=== PATIENT | male | born 1955 | race Caucasian/White ===

== ENCOUNTER 2023-10-07 14:30 | Outpatient (AMB) | payer MEDICARE, SELFPAY ==
[2023-10-07 14:29] VITALS: BMI 40.5
--- NOTE | 2023-10-07 14:29 | A.OFFVIS_ITS ---
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 This originally began as a workup for kidney stones dating back to 02/18/2023. Regional CT scan was performed at an outside institution. In terms of his aneurysm he is completely asymptomatic. He reports that he smokes about a half a pack per day and is a nondiabetic. He is able to climb a flight of stairs with no difficulty and no shortness of breath. He now presents for vascular evaluation [facility] Medical History (Updated 10/08/23 @ 12:28 by Louis Márquez MD) History of nephrolithotomy with removal of calculi Hypertension Hypercholesteremia Social History (Updated 10/07/23 @ 14:43 by Madeline Sinclair [place]) Patient Tobacco Use Status: Current everyday Tobacco user Cigarette Packs Per Day: 0.5 Years Smoked: 1 yr Review of Systems Const All systems reviewed & are unremarkable except as noted in HPI and below Reports no additional complaints ENT Reports Normal hearing present Card Denies chest pain, Denies chest pain at rest, Denies chest pain with activity and Denies pedal edema Resp Denies cough GI Denies abdominal pain Musc Denies abnormal gait, Denies muscle cramps and Denies radiating pain into limb Skin/Breast Denies skin ulcer and Denies wounds Neuro Reports Normal hearing present and Denies abnormal gait Psych Reports no additional complaints Physical Exam Vital Signs: BMI result Body Mass Index 40.5 Const General: cooperative, healthy appearing and comfortable Orientation/consciousness: oriented to person, oriented to place and oriented to time HEENT Head: Yes normal to inspection Neck Neck: Yes normal visual inspection Carotids: no bruits Chest Chest palpation & inspection: normal inspection of the chest Resp Effort & Inspection: normal respiratory effort and able to speak in complete sentences Auscultation: clear to auscultation bilaterally, no crackles, no rales, no rhonchi and no wheezes Cardio Rate: regular rate Rhythm: regular rhythm Heart sounds: S1 normal heart sound present and S2 normal heart sound present Bruits: no carotid bruits Peripheral pulses: Peripheral pulses 2+ throughout GI Inspection: Yes normal to inspection Skin Wounds: no wounds Hair: normal Neuro General: oriented to person, oriented to place and oriented to time Cranial nerves: Yes CN's II-XII intact bilaterally and Yes Normal hearing pre sent Cognition (Neuro): normal cognition Motor exam (neuro): 5/5 motor strength present throughout Extrem Other: venous exam: No significant superficial varicosities or spider telangiectasias, minimal edema General: No clubbing, No cyanosis and No edema Psych Appearance: grossly normal Mental Status: mental status grossly normal Speech and movement: Normal speech and movement present Results Reviewed Results Reviewed: CT scan dated 02/18/2023 demonstrates a 3.2 short-segment saccular infrarenal aortic aneurysm. Written report reviewed only Assessment & Plan Assessment & Plan (1) AAA (abdominal aortic aneurysm) without rupture: Code(s): I71.40 - Abdominal aortic aneurysm, without rupture, unspecified Qualifiers: Abdominal aorta location: infrarenal aorta Qualified Code(s): I71.43 - Infrarenal abdominal aortic aneurysm, without rupture Plan: In short patient has a 3.2 cm aneurysm. The concern is the report of the morphology of a saccular aneurysm. I have taken the liberty of ordering a repeat CT angiogram to better define this and it has been over 6 months since his last CT scan. We did discuss routine risk factor modification we also went over the pathophysiology of disease in I did provide him an information booklet about aortic aneurysms. He will follow up with us after testing. Thank you for allowing us to assist in his care. If there are any questions or concerns please do not hesitate to contact us Orders: Orders Creatinine Today I71.43 - Infrarenal abdominal aortic aneurysm, without rupture CT angio abdomen pelvis 3 Days I71.43 - Infrarenal abdominal aortic aneurysm, without rupture Blood Urea Nitrogen Today I71.43 - Infrarenal abdominal aortic aneurysm, without rupture Coding Level of Care Code New Pt Level 4 (16865) Diagnoses Infrarenal abdominal aortic aneurysm (AAA) without rupture I71.43 Abdominal aorta location: infrarenal aorta
== END 2023-10-07 15:18 | disposition home or self-care (01) ==
PROVIDERS: Visit Provider Surgery Vascular Surgery
DX: I71.43 Infrarenal abdominal aortic aneurysm, without rupture (principal)
CPT/HCPCS: 99204

== ENCOUNTER → 2023-10-07 14:30 | Outpatient (BNVA) | payer MEDICARE, SELFPAY | PROVIDERS: Visit Provider Surgery Vascular Surgery | DX: I71.43 Infrarenal abdominal aortic aneurysm, without rupture (principal) | CPT/HCPCS: 99202 ==

== ENCOUNTER 2023-10-10 15:59 | Outpatient (REF) | payer MEDICARE, SELFPAY ==
--- NOTE | ~2023-10-10 | CT_ITS ---
EXAMINATION: CT ANGIOGRAM ABDOMEN AND PELVIS CLINICAL INFORMATION: Infrarenal abdominal aortic aneurysm without rupture. COMPARISON: None available. TECHNIQUE: Multiple axial images were obtained through the abdomen and pelvis following the administration of 100 mL of Omnipaque 350 intravenous contrast. Images were reviewed on a dedicated 3-D workstation. This CT examination was performed using dose optimization techniques as appropriate, variously including the following: *Automated exposure control *Adjustment of mA and/or kV according to patient size (this includes techniques or standardized protocols for targeted exams where dose is matched to indication/reason for exam; i.e. extremities or head) *Use of iterative reconstruction technique DLP: 807 mGy-cm FINDINGS: Lung bases: There is bibasilar scarring or atelectasis. The heart size is normal. Liver, ducts and gallbladder: The liver is normal size, contour and density. There are 2 hypodense lesion in left and right hepatic lobe respectively. The larger lesion right upper lobe measures 2.7 cm and -3 Hounsfield units suggestive of cysts. No intrahepatic ductal dilatation seen. The gallbladder is dilated without radiopaque gallstones or wall thickening. CBD is normal caliber. Spleen: Pancreas: Unremarkable. Adrenal glands: There is normal symmetry of bilateral adrenal glands which appear normal size and density. Kidneys and ureters: Both kidney nephrograms are slightly lobulated with bilateral exophytic renal cysts. The largest cyst lower pole left kidney appears lobulated measuring 5.9 x 2.3 cm and minus Hounsfield units suggestive of cysts simple cyst. No further workup needed. There are no radiopaque calculi are hydronephrosis. GI tract: There is scattered stool and gas seen in colon without distention. The small bowel loops are normal caliber. Appendix is not visualized. No inflammatory process, free air or free fluid seen. Abdominal wall: Unremarkable. Lymphovascular structures: Abdominal aorta is normal caliber with a focal distal posterior outpouching suggestive of aneurysm measuring 3.0 x 2.0 cm. There are dual bilateral renal arteries. No abnormal size retroperitoneal or mesenteric lymph nodes seen. Pelvis: Prostate gland is mildly enlarged with peripheral gland calcification. No aneurysmal dilatation seen. Osseous structures: There is degenerative disc changes with vacuum disc phenomena at L2-L3, L3-L4 and L4-L5 disc levels with mild ventral spondylosis. No aggressive lytic or sclerotic process seen. CT/CT angio abdomen pelvis IMPRESSION: No acute intra-abdominal process seen. There is a small saccular aneurysm distal abdominal aorta with an AP dimension of 3.0 cm. There are bilateral simple renal cysts. No further workup needed. Fleischner guidelines were followed.
[2023-10-10] MEDS: iohexoL 350 MG/ML 100 ML INFUS..BTL 80 ML IV (17:04)
[2023-10-13 09:07] LABS: Creatinine POC 1.1 mg/dL (0.5-1.4); GFR POC > 60
== END 2023-10-10 16:00 | disposition home or self-care (01) ==
LOC: HO.CT 15:59
PROVIDERS: Visit Provider Surgery Vascular Surgery
DX: I71.43 Infrarenal abdominal aortic aneurysm, without rupture (principal)
CPT/HCPCS: 74174; 82565; Q9967

== ENCOUNTER 2023-11-06 14:29 | Outpatient (AMB) | payer MEDICARE, SELFPAY ==
--- NOTE | 2023-11-06 14:32 | MHC.OFFVIS ---
Intake Vital Signs 11/06/23 14:33 Height 5 ft 10.8 in Weight 289 lb BMI 40.5 BP 142/78 H Blood Pressure Location Rt brachial Position Sitting Pulse 55 Pulse Source Pulse Oximeter Pulse Oximetry (%) 95 Oxygen Delivery Method Room Air Intake Visit Reasons: follow up CTA Abd/pelvis 10/10/23 Intake Note: Pt presents to the office today for a follow up CTA abd/pelvis 10/10/23. Pt states he is feeling okay. Pt denies any stomach pain or nausea. Allergies Sulfa (Sulfonamide Antibiotics) Allergy (Intermediate, Verified 11/06/23 14:35) swelling HPI follow up CTA Abd/pelvis 10/10/23 HPI Details Very pleasant 68-year-old gentleman presents for follow-up regarding saccular aortic aneurysm. It originally began as a workup for kidney stones dating back to 02/18/2023. Regional CT scan was performed at an outside institution. In terms of his aneurysm he is completely asymptomatic. He reports that he smokes about a half pack per day and is nondiabetic. He now presents for repeat CT angiogram for better identification of the topography of this aneurysm. [facility] Medical History History of nephrolithotomy with removal of calculi Hypertension Hypercholesteremia Social History (Updated 11/06/23 @ 14:36 by Amparo Sinclair MA) Alcohol intake: never Patient Tobacco Use Status: Current everyday Tobacco user Cigarettes Per Day: 3 Years Smoked: 1 yr Review of Systems Const All systems reviewed & are unremarkable except as noted in HPI and below Reports no additional complaints ENT Reports Normal hearing present Card Denies chest pain, Denies chest pain at rest, Denies chest pain with activity and Denies pedal edema Resp Denies cough GI Denies abdominal pain Musc Denies abnormal gait, Denies muscle cramps and Denies radiating pain into limb Skin/Breast Denies skin ulcer and Denies wounds Neuro Reports Normal hearing present and Denies abnormal gait Psych Reports no additional complaints Physical Exam Vital Signs: Last Vital Signs Pulse 55 11/06/23 14:33 BP 142/78 H 11/06/23 14:33 Pulse Ox 95 11/06/23 14:33 Oxygen Delivery Method Room Air 11/06/23 14:33 BMI result Body Mass Index 40.5 Const General: cooperative, healthy appearing and comfortable Orientation/consciousness: oriented to person, oriented to place and oriented to time HEENT Head: Yes normal to inspection Neck Neck: Yes normal visual inspection Carotids: no bruits Chest Chest palpation & inspection: normal inspection of the chest Resp Effort & Inspection: normal respiratory effort and able to speak in complete sentences Auscultation: clear to auscultation bilaterally, no crackles, no rales, no rhonchi and no wheezes Cardio Rate: regular rate Rhythm: regular rhythm Heart sounds: S1 normal heart sound present and S2 normal heart sound present Bruits: no carotid bruits Peripheral pulses: Peripheral pulses 2+ throughout GI Inspection: Yes normal to inspection Skin Wounds: no wounds Hair: normal Neuro General: oriented to person, oriented to place and oriented to time Cranial nerves: Yes CN's II-XII intact bilaterally and Yes Normal hearing present Cognition (Neuro): normal cognition Motor exam (neuro): 5/5 motor strength present throughout Extrem Other: venous exam: No significant superficial varicosities or spider telangiectasias, minimal edema General: No clubbing, No cyanosis and No edema Psych Appearance: grossly normal Mental Status: mental status grossly normal Speech and movement: Normal speech and movement present Results Reviewed Results Reviewed: CT angiogram dated 10/10/2023 demonstrates small saccular aneurysm of 3.0 cm in AP diameter. Written report and images were reviewed. Assessment & Plan Assessment & Plan (1) AAA (abdominal aortic aneurysm) without rupture: Code(s): I71.40 - Abdominal aortic aneurysm, without rupture, unspecified Qualifiers: Abdominal aorta location: infrarenal aorta Qualified Code(s): I71.43 - Infrarenal abdominal aortic aneurysm, without rupture Plan: In short patient has radiologic evidence of a AAA on CT scan of a saccular aneurysm of 3.0 cm. The concern here is a saccular aneurysm may be more aggressive than a regular aneurysm. At the current time it does appear to be stable. We have discussed the pathophysiology of aortic aneurysms and the risk of ruptures. We have discussed rupture risk based on size. In addition we have discussed conservative measures and risk factor modification for prevention of increase in size of the aneurysm. the patient is scheduled for surveillance follow-up in approximately 6 months. Thank you for allowing us to participate in the care of this patient Orders: Orders US abdominal aortic aneurysm 6 Months I71.43 - Infrarenal abdominal aortic aneurysm, without rupture Coding Level of Care Code Est Pt Level 4 (24211) Diagnoses Infrarenal abdominal aortic aneurysm (AAA) without rupture I71.43 Abdominal aorta location: infrarenal aorta
[2023-11-06 14:33] VITALS: BP 142/78; PULSE 55; O2SAT 95; BMI 40.5
== END 2023-11-06 14:59 | disposition home or self-care (01) ==
PROVIDERS: Visit Provider Surgery Vascular Surgery
DX: I71.43 Infrarenal abdominal aortic aneurysm, without rupture (principal)
CPT/HCPCS: 99213

== ENCOUNTER → 2023-11-06 14:29 | Outpatient (BNVA) | payer MEDICARE, SELFPAY | PROVIDERS: Visit Provider Surgery Vascular Surgery | DX: I71.43 Infrarenal abdominal aortic aneurysm, without rupture (principal) | CPT/HCPCS: 99212 ==

== ENCOUNTER 2024-04-30 11:23 | Outpatient (REF) | payer MEDICARE, SELFPAY ==
--- NOTE | ~2024-04-30 | US_ITS ---
EXAMINATION: US RETROPERITONEAL LIMITED (AORTA) CLINICAL INFORMATION: Infrarenal abdominal aortic aneurysm without rupture. COMPARISON: CTA abdomen pelvis 10/10/2023. TECHNIQUE: Delcid-scale, color Doppler and spectral Doppler evaluation of the abdominal aorta. FINDINGS: There is atherosclerotic disease. The measurements of the aorta in maximum AP and transverse dimensions respectively are as follows: Proximal: 3.0 x 3.0 cm. Mid: 2.4 x 2.9 cm. Distal: 2.2 x 2.0 cm. PSV: 96 cm/s. The measurements of the common iliac arteries in maximum AP and TRV dimensions are as follows: Right Common Iliac Artery: 1.7 x 1.4 cm. Left Common Iliac Artery: 1.7 x 1.6 cm. US/US abdominal aortic aneurysm IMPRESSION: No abdominal aortic or iliac artery aneurysm.
== END 2024-04-30 11:24 | disposition home or self-care (01) ==
LOC: HO.US 11:23
PROVIDERS: PCP Family Medicine; Visit Provider Surgery Vascular Surgery
DX: I71.43 Infrarenal abdominal aortic aneurysm, without rupture (principal)
CPT/HCPCS: 76706

== ENCOUNTER 2024-06-03 09:59 | Outpatient (AMB) | payer MEDICARE, SELFPAY ==
[2024-06-03 10:00] VITALS: BMI 40.5
--- NOTE | 2024-06-03 10:00 | MHC.OFFVIS ---
Vital Signs 06/03/24 10:00 Height 5 ft 10.8 in Weight 289 lb BMI 40.5 Intake Visit Reasons: 6m follow up s/p AAA US 04/30/24 Intake Note: 6 mo follow up AAA US 04/30/24, pt states no complaints Accompanied by: Self / Same As Patient Allergies Sulfa (Sulfonamide Antibiotics) Allergy (Intermediate, Verified 06/03/24 10:03) swelling HPI HPI 6m follow up s/p AAA US 04/30/24: Details: Very pleasant 68-year-old gentleman presents for follow-up regarding a saccular aneurysm. It originally began as workup for kidney stones with a CT performed on 02/18/2023. He now presents for surveillance follow-up with ultrasound. At the current time he is asymptomatic. He continues to smoke a half a pack per day. [facility] Medical History History of nephrolithotomy with removal of calculi Hypertension Hypercholesteremia Social History (Updated 06/03/24 @ 10:03 by JENNYFER Jordan) Alcohol intake: never Patient Tobacco Use Status: Current everyday Tobacco user Cigarettes Per Day: 10 Years Smoked: 1 yr Review of Systems Const All systems reviewed & are unremarkable except as noted in HPI and below Reports no additional complaints ENT Reports Normal hearing present Card Denies chest pain, Denies chest pain at rest, Denies chest pain with activity and Denies pedal edema Resp Denies cough GI Denies abdominal pain Musc Denies abnormal gait, Denies muscle cramps and Denies radiating pain into limb Skin/Breast Denies skin ulcer and Denies wounds Neuro Reports Normal hearing present and Denies abnormal gait Psych Reports no additional complaints Physical Exam Vital Signs: BMI result Body Mass Index 40.5 Const General: cooperative, healthy appearing and comfortable Orientation/consciousness: oriented to person, oriented to place and oriented to time HEENT Head: Yes normal to inspection Neck Neck: Yes normal visual inspection Carotids: no bruits Chest Chest palpation & inspection: normal inspection of the chest Resp Effort & Inspection: normal respiratory effort and able to speak in complete sentences Auscultation: clear to auscultation bilaterally, no crackles, no rales, no rhonchi and no wheezes Cardio Rate: regular rate Rhythm: regular rhythm Heart sounds: S1 normal heart sound present and S2 normal heart sound present Bruits: no carotid bruits Peripheral pulses: Peripheral pulses 2+ throughout GI Inspection: Yes normal to inspection Skin Wounds: no wounds Hair: normal Neuro General: oriented to person, oriented to place and oriented to time Cranial nerves: Yes CN's II-XII intact bilaterally and Yes Normal hearing present Cognition (Neuro): normal cognition Motor exam (neuro): 5/5 motor strength present throughout Extrem Other: venous exam: No significant superficial varicosities or spider telangiectasias, minimal edema General: No clubbing, No cyanosis and No edema Psych Appearance: grossly normal Mental Status: mental status grossly normal Speech and movement: Normal speech and movement present Results Reviewed Results Reviewed: Noninvasive arterial testing dated 04/30/2024 demonstrates aneurysm sac of 3 cm. Iliacs within normal limits. Written report and images were reviewed. Assessment & Plan Assessment & Plan (1) AAA (abdominal aortic aneurysm) without rupture: Code(s): I71.40 - Abdominal aortic aneurysm, without rupture, unspecified Category: Medical Qualifiers: Abdominal aorta location: infrarenal aorta Qualified Code(s): I71.43 - Infrarenal abdominal aortic aneurysm, without rupture Plan: In short patient has radiologic evidence of a AAA on ultrasound of 3 cm. We have discussed the pathophysiology of aortic aneurysms and the risk of ruptures. We have discussed rupture risk based on size. In addition we have discussed conservative measures and risk factor modification for prevention of increase in size of the aneurysm. the patient is scheduled for surveillance follow-up in approximately 1 year. Thank you for allowing us to participate in the care of this patient Orders: Orders US abdominal aortic aneurysm 1 Year I71.43 - Infrarenal abdominal aortic aneurysm, without rupture Coding Level of Care Code Est Pt Level 4 (56245) Diagnoses Infrarenal abdominal aortic aneurysm (AAA) without rupture I71.43 Abdominal aorta location: infrarenal aorta
== END 2024-06-03 10:22 | disposition home or self-care (01) ==
PROVIDERS: PCP Family Medicine; Visit Provider Surgery Vascular Surgery
DX: I71.43 Infrarenal abdominal aortic aneurysm, without rupture (principal)
CPT/HCPCS: 99214

== ENCOUNTER → 2024-06-03 09:59 | Outpatient (BNVA) | payer MEDICARE, SELFPAY | PROVIDERS: PCP Family Medicine; Visit Provider Surgery Vascular Surgery | DX: I71.43 Infrarenal abdominal aortic aneurysm, without rupture (principal) | CPT/HCPCS: 99212 ==

== ENCOUNTER 2025-05-30 08:43 | Outpatient (REF) | payer MEDICARE, SELFPAY ==
--- NOTE | ~2025-05-30 | US_ITS ---
CLINICAL HISTORY: I71.43 - Infrarenal abdominal aortic aneurysm, without rupture US Abdomen (AAA) Comparison: CT/HI - CT ABDOMEN PELVIS ANGIOGRAPHY WITH IV CONTRAST - 10/10/23 16:49 EST Findings: Aorta proximal 28 x 28 cm. Aorta mid 27 x 27 cm. There is a small saccular aneurysm arising from the posterior aspect of the distal abdominal aorta measuring up to 1.2 cm in diameter Right common iliac artery 1.3 x 1.4 cm. Left common iliac artery 1.5 x 1.3 cm. IMPRESSION: 1. 1.2 cm saccular aneurysm posterior aspect of the distal abdominal aorta. This document has been electronically signed by: Luis Hogue MD on 05/31/2025 10:59:24
--- OUTSIDE RECORDS SUMMARY | 2025-05-30 09:08 | XMS_ITS | Clinical Summary ---
Author Organization [facility] Address [address] [place] [address] Care Team Providers Care Director Embalmer Name Role Phone Singh Tilley Primary Care Provider [phone] Allergies Active Allergy Reactions Criticality Noted Date Comments Sulfa (Sulfonamide Antibiotics) Swelling High 01/24/2025 Received ear drops and the ear blew up Medications aspirin chewable tablet 81 mg Chew and swallow 81 mg by mouth once a day. Active lisinopriL (PRINIVIL,ZESTR IL) 20 mg tablet Take 20 mg by mouth once a day. Active atorvastatin (LIPITOR) 40 mg tablet Take 40 mg by mouth once a day. Active Social History Tobacco Use Types Packs/Day Years Used Date Smoking Tobacco: Former Cigarettes Smokeless Tobacco: Never Tobacco Cessation:Counseling Given: Not Answered Comments:Quit smoking June 2024 Alcohol Use Standard Drinks/Week Comments Not Currently 0 (1 standard drink = 0.6 oz pur e alcohol) Sex and Gender Information Value Date Recorded Sex Assigned at Male 01/03/2025 10:36 AM EST Legal Sex Male 2:38 PM EST Gender Identity Male 01/24/2025 9:32 AM EDT Sexual Orientation Choose not to disclose 2024 9:32 AM EDT Last Filed Vital Signs Vital Sign Reading Time Taken Comments Blood Pressure 158/79 01/31/2025 9:46 AM EDT Pulse 57 01/31/2025 9:46 AM EDT Temperature 36.5 C (97.7 F) 01/31/2025 9:46 AM EDT Respiratory Rate 20 01/31/2025 9:46 AM EDT Oxygen Saturation 99% 01/31/2025 9:46 AM EDT Inhaled Oxygen Concentration - - Weight 131.5 kg (290 lb) 01/24/2025 9:08 AM EDT Height 182.9 cm (6') 01/24/2025 9:08 AM EDT Body Mass Index 39.33 01/24/2025 9:08 AM EDT Plan of Treatment Health Maintenance Due Date Last Done Comments Cologuard 1955 Colon Cancer Screening 1955 Colonoscopy 1955 FOBT / Fit Test 1955 Sigmoidoscopy 1955 Zoster Vaccines (1 of 2) 2005 DTaP,Tdap,and Td Vaccines (1 - Tdap) 08/30/2021 08/29/2021 Pneumococcal Vaccine: 50+ Years (2 of 2 - PCV) 08/29/2022 08/29/2021 COVID-19 Vaccine (4 - 2023-2 5 season) 2024 09/07/2021, 03/07/2021, 02/14/2021 Alcohol/Substance Use Screening 11/03/2024 Depression Screening and Follow-Up 11/03/2024 Health Care Proxy Review 11/03/2024 Social Drivers of Health Annual Screening 11/03/2024 Influenza Vaccine (#1) 2025 CT Lung Cancer Screening (Baseline) 11/27/2025 11/27/2024 RSV Vaccine (60+ years old a nd patients) (1 - 1-dose 75+ series) 2030 Hepatitis C Screening Completed 08/02/2024 Abdominal Aortic Aneurysm (AAA) Screening Completed 11/27/2024 Hepatitis B Vaccines Aged Out No long er eligible based on patient's age to complete this topic Insurance #[address] [place] [id number] [facility] [employer] Care Teams Director Embalmer Relationship Specialty Start Date End Date Singh Tilley [address] [place], [place] [id number] PCP - General Internal Medicine 12/21/24
--- OUTSIDE RECORDS SUMMARY | 2025-05-30 09:08 | XMS_ITS | Encounter Summary ---
Author Organization [employer] Address [address] [place] [address] [facility] [place] [address] Care Team Providers Care Shadowgraph Scale Operator Name Role Phone Singh Tilley MD Primary Care Provider + [phone] Reason for Referral * Consultation (Urgent) - Authorized Specialty Diagnoses / Procedures Referred By Contac t Referred To Contact Endocrinology Diagnoses Thyroid nodule Singh Tilley MD [address] [place] [address] Phone: tel: fax: [facility] Adult, Endocrinology [address] [place] [address] Phone: tel: fax: Referral ID Status Reason Start Date Expiration Date Visits Requested Visits Authorized [id number] Authorized Specialty Services Required 12/29/2024 12/29/2025 6 6 Encounter Details Date Type Department Care Team ([facility] Contact Info) Description 12/21/2024 Orders Only [facility] [address] [place] [phone] Singh Tilley MD [address] [place] [address] Thyroid nodule (Primary Dx) Social History Tobacco Use Types Packs/Day Years Used Date Smoking Tobacco: Former Cigarettes 1 15 Passive Smoke Exposure: Past Smokeless Tobacco: Never Alcohol Use Standard Drinks/Week Comments Not Currently 0 (1 standard drink = 0.6 oz pur e alcohol) Alcohol Answer Date Recorded How often do you have a drink containing alcohol ? 0 08/02/2024 How many drinks containing a lcohol do you have on a typical day when you are drinking? 0 08/02/2024 How often do you have six or more drinks on one occasion? 0 08/02/2024 Housing Stability Answer Date Recorded What is your housing situation today? I have florence richmond 08/02/[address] you li ve. Do you have problems with any of the following? None of the above 08/02/2024 Food Insecurity Answer Date Recorded Within the past 12 months, y ou worried that your food would run out before you got money to buy more: Never True 08/02/2024 Within the past 12 months,th e food you bought just didn't last and you didn't have enough money to get more: Never True Transportation Answer Date Recorded In the past 12 months, has l ack of transportation kept you from medical appts, meetings, work or from getting things needed for daily living? No 08/02/2024 Intimate Partner Violence Answer Date R ecorded Within the last year, have y ou been afraid of your partner or ex-partner? 2 08/02/2024 Within the last year, have y ou been humiliated or emotionally abused in other ways by your partner or ex-partner? 2 Within the last year, have y ou been kicked, hit, slapped, or otherwise physically hurt by your partner or ex-partner? 2 08/02/2024 Within the last year, have y ou been raped or forced to have any kind of sexual activity by your partner or ex-partner? 2 08/02/2024 Utilities Answer Date Recorded In the past 12 months, has t he [employer], gas, oil or water legalPAD threatened to shut off services in your home? No 08/02/2024 Depression Answer Date Recorded Patient Health Questionnaire-2 Score 0 08/02/2024 Internet Access Answer Date Recorded Internet Access Q1 Yes 08/02/2024 Internet Access Q2 Not on file 08/02/2024 Sex and Gender Information Value Date Recorded Sex Assigned at Male 03/14/2023 10:44 AM EDT Legal Sex Male 10:42 AM EDT Gender Identity Male 03/14/2023 10:44 AM EDT Sexual Orientation Choose not to disclose 2022 10:50 AM EDT documented as of this encounter Plan of Treatment Scheduled Referrals Name Type Priority Associated Diagnoses Order Schedule Referral to Endocrinology Outpatient Referral Urgent Thyroid nodule Expected: 12/21/2024 (Approximate), Expires: 12/21/2025 documented as of this encounter Visit Diagnoses Diagnosis Thyroid nodule- Primary Nontoxic uninodular goiter documented in this encounter Care Teams Shadowgraph Scale Operator Relationship Specialty Start Date End Date Singh Tilley MD [address] [place] [address] PCP - General Internal Medicine 06/23/24 documented as of this encounter
--- OUTSIDE RECORDS SUMMARY | 2025-05-30 09:08 | XMS_ITS | Encounter Summary ---
Author Organization [facility] Address [address] [place] [address] Phone Care Team Providers Care Dried Yeast Supervisor Name Role Phone Singh Tilley MD Primary Care Provider [phone] Encounter Details Date Type Department Care Team (Late Contact Info) Description 05/10/2025 Procedure Pass [facility] [address] [place] [address] Social History Tobacco Use Types Packs/Day Years Used Date Smoking Tobacco: Former Cigarettes Smokeless Tobacco: Never Alcohol Use Standard Drinks/Week Comments Not Currently 0 (1 standard drink = 0.6 oz pur e alcohol) Education Answer Date Recorded Are you interested in more education? Not on deanna e 08/06/2024 Are you concerned about learning? Not on file 08/06/2024 No 08/06/2024 No 08/06/2024 Digital Access Answer Date Recorded No 08/06/2024 No 08/06/2024 Reliable internet access at home? Not on file 08/06/2024 Device with a working camera? Not on file Sex and Gender Information Value Date Recorded Sex Assigned at Not on file Legal Sex Male 10:49 AM EDT Gender Identity Not on file Sexual Orientation Not on file documented as of this encounter Plan of Treatment Upcoming Encounters Date Type Department Care Team (Late Contact Info) Description 08/16/2025 11:50 AM EDT Office Visit [facility] [address] [place], [place] [phone] Zachary Valverde, DO [address] [place] [address] documented as of this encounter Visit Diagnoses Not on filedocumented in this encounter Care Teams Dried Yeast Supervisor Relationship Specialty Start Date End Date Singh Tilley MD [address] [place] [address] [email or web address] PCP - General Internal Medicine 11/27/24 documented as of this encounter Additional Source Comments The information contained in this document represents components of the legal health record. It is not the complete legal health record.[facility]
== END 2025-05-30 08:44 | disposition home or self-care (01) ==
LOC: HO.US 08:43
PROVIDERS: PCP Internal Medicine; Visit Provider Surgery Vascular Surgery
DX: I71.43 Infrarenal abdominal aortic aneurysm, without rupture (principal)
CPT/HCPCS: 76706

== ENCOUNTER → 2025-05-30 08:44 | Outpatient (BNV) | payer MEDICARE, SELFPAY | PROVIDERS: PCP Internal Medicine; Visit Provider Radiology Diagnostic Radiology | DX: I71.43 Infrarenal abdominal aortic aneurysm, without rupture (principal) | CPT/HCPCS: 76706 ==

== ENCOUNTER 2025-09-08 11:07 | Outpatient (AMB) | payer MEDICARE, SELFPAY ==
--- OUTSIDE RECORDS SUMMARY | 2025-09-06 09:20 | XMS_ITS | Encounter Summary ---
Author Organization [employer] Address [address] [place] [address] 7 [place] [address] Care Team Providers Care Chief Librarian Branch Name Role Phone Singh Tilley MD Primary Care Provider + [phone] Reason for Visit * Reason Comments Cough Cough and congestion for almost 3 weeks Encounter Details Date Type Department Care Team ([facility] Contact Info) Description 09/06/2025 9:20 AM EST Office Visit [address] [phone] Kath Sinclair FNP [address] [place] [address] Acute cough (Primary Dx) Social History Tobacco Use Types [...] housing situation today? I have florence richmond 09/06/[address] you li ve. Do you have problems with any of the following? None of the above 09/06/2025 Food Insecurity Answer Date Recorded Within the past 12 months, y ou worried that your food would run out before you got money to buy more: Never True 09/06/2025 Within the past 12 months,th e food you bought just didn't last and you didn't have enough money to get more: Never True 02/2025 Transportation Answer Date Recorded In the past 12 months, has l ack of transportation kept you from medical appts, meetings, work or from getting things needed for daily living? No 09/06/2025 Intimate Partner Violence Answer Date R ecorded [...] the past 12 months, has t he [employer], gas, oil or water company threatened to shut off services in your home? No 09/06/2025 Depression Answer Date Recorded Patient Health Questionnaire-2 Score 0 09/06/2025 Internet Access Answer Date Recorded Internet Access Q1 Yes 09/06/2025 Internet Access Q2 Not on file 09/06/2025 Sex and Gender Information Value Date Recorded Sex Assigned at Male 03/14/2023 10:44 AM EDT Legal Sex Male 10:42 AM EDT Gender Identity Male 03/14/2023 10:44 AM EDT Sexual Orientation Straight 09/06/2025 9: 27 AM EST documented as of this encounter Last Filed Vital Signs Vital Sign Reading Time Taken Comments Blood Pressure 126/65 09/06/2025 9:31 AM EST Pulse 53 09/06/2025 9:31 AM EST Temperature - - Respiratory Rate - - Oxygen Saturation 98% 09/06/2025 9:31 AM EST Inhaled Oxygen Concentration - - Weight - - Height - - Body Mass Index - - documented in this encounter Functional Status * Over the past 2 weeks, how often have you been bothered by any of the following problems? Question Answer Date of Assessment Author Little interest or pleasure in doing things Not at all 09/06/2025 9:30 AM Abel Cruz MA Feeling down, depressed, or hopeless Not at all 09/06/2025 9:30 AM Abel Cruz MA Patient Health Questionnaire-2 Score 0 09/06/2025 9:30 AM Preethi Cruz MA documented as of this encounter Progress Notes * NIKOLAI Quintana - 09/06/2025 9:20 AM EST Subjective Patient ID: Chetan De La Torre is a 70 y.o. male who presents for Cough (Cough and congestion for almost 3 weeks ). This visit documentation was prepared using voice-enabled artificial intelligence software ([employer] notes). Feels like nasal infection and cough till abdominal pain Worked for someone else. Better than Friday Illness got better then worse again. Cough Review of Systems Respiratory: Positive for cough. Objective Physical Exam Constitutional: Appearance: Normal appearance. He is obese. HENT: Right Ear: Tympanic membrane, ear canal and external ear normal. Left Ear: Tympanic membrane, ear canal and external ear normal. Nose: Nose normal. Mouth/Throat: Mouth: Mucous membranes are moist. Cardiovascular: Rate and Rhythm: Normal rate and regular rhythm. Musculoskeletal: Cervical back: Normal range of motion and neck supple. Neurological: Mental Status: He is alert. Assessment/Plan Diagnoses and all orders for this visit: Acute cough - albuterol 108 (90 Base) MCG/ACT inhaler; Inhale 2 puffs every 6 (six) hours if needed for wheezing or shortness of breath. - Spacer/Aero-Holding Chambers device; 1 Device Every 4-6 hours as needed (for cough or wheeze). - azithromycin (Zithromax) 250 MG tablet; Take 2 tablets (500 mg) by mouth Once per day for 1 day, THEN 1 tablet (250 mg) Once per day for 4 days. Other orders - benzonatate (Tessalon Perles) 100 MG capsule; Take 1 capsule (100 mg) by mouth if needed in the morning, at noon, and at bedtime for cough for up to 7 days. Do not crush or chew. Lots of water and rest Rtc worse or cont Pt can't do xray due to limits by insurance co today. documented in this encounter Plan of Treatment Not on file documented as of this encounter Visit Diagnoses Diagnosis Acute cough- Primary documented in this encounter Care Teams Chief Librarian Branch Relationship Specialty Start Date End Date Singh Tilley MD [address] [place] [address] PCP - General Internal Medicine 06/23/24 documented as of this encounter
--- NOTE | 2025-09-08 11:12 | A.OFFVIS_ITS ---
Vital Signs 09/08/25 11:14 Height 5 ft 11 in Weight 289 lb BMI 40.3 Intake Visit Reasons: 1 yr follow up AAA US Intake Note: 1 yr follow up AAA US 05/30/25 [employer] Pinner Required: No Accompanied by: Self / Same As Patient Allergies Sulfa (Sulfonamide Antibiotics) Allergy (Intermediate, Verified 09/08/25 11:17) swelling HPI HPI 1 yr follow up AAA US: Details: The patient is a 70-year-old male presenting for follow-up on previously identified abdominal aortic aneurysm and gallbladder cloudiness. The patient recently experienced a sinus infection lasting two weeks, which required antibiotic treatment after initial attempts to manage without medication. The patient underwent a cardiac catheterization procedure where no significant findings were noted, which was a relief to him. An ultrasound was conducted, showing stability in the abdominal aortic aneurysm, which measures approximately 3 cm. The patient is aware that surgical intervention is typically considered at 5.5 cm, and he is advised to have annual ultrasounds to monitor the condition. The patient was previously diagnosed with cloudiness around the gallbladder but has not experienced any associated symptoms. He has undergone comprehensive evaluations over the past year and a half, which have largely returned favorable results. He now presents for aneurysm follow-up with ultrasound [facility] Medical History History of nephrolithotomy with removal of calculi Hypertension Hypercholesteremia Social History (Updated 09/08/25 @ 11:20 by JENNYFER Jordan) Alcohol intake: never Patient Tobacco Use Status: Former Tobacco user Years Smoked: 1 yr Review of Systems Const All systems reviewed & are unremarkable except as noted in HPI and below Reports no additional complaints ENT Reports Normal hearing present Card Denies chest pain, Denies chest pain at rest, Denies chest pain with activity and Denies pedal edema Resp Denies cough GI Denies abdominal pain Musc Denies abnormal gait, Denies muscle cramps and Denies radiating pain into limb Skin/Breast Denies skin ulcer and Denies wounds Neuro Reports Normal hearing present and Denies abnormal gait Psych Reports no additional complaints Physical Exam Vital Signs: BMI result Body Mass Index 40.3 Const General: cooperative, healthy appearing and comfortable Orientation/consciousness: oriented to person, oriented to place and oriented to time HEENT Head: Yes normal to inspection Neck Neck: Yes normal visual inspection Carotids: no bruits Chest Chest palpation & inspection: normal inspection of the chest Resp Effort & Inspection: normal respiratory effort and able to speak in complete sentences Auscultation: clear to auscultation bilaterally, no crackles, no rales, no rhonchi and no wheezes Cardio Rate: regular rate Rhythm: regular rhythm Heart sounds: S1 normal heart sound present and S2 normal heart sound present Bruits: no carotid bruits Peripheral pulses: Peripheral pulses 2+ throughout GI Inspection: Yes normal to inspection Skin Wounds: no wounds Hair: normal Neuro General: oriented to person, oriented to place and oriented to time Cranial nerves: Yes CN's II-XII intact bilaterally and Yes Normal hearing present Cognition (Neuro): normal cognition Motor exam (neuro): 5/5 motor strength present throughout Extrem Other: venous exam: No significant superficial varicosities or spider telangiectasias, minimal edema General: No clubbing, No cyanosis and No edema Psych Appearance: grossly normal Mental Status: mental status grossly normal Speech and movement: Normal speech and movement present Results Reviewed Results Reviewed: Ultrasound report dated 05/30/2025 demonstrates a 1.2 cm saccular aneurysm in the posterior aspect of the distal aorta. Overall appears to be a proximally 3 cm on previous CAT scan Assessment & Plan Assessment & Plan (1) AAA (abdominal aortic aneurysm) without rupture: Code(s): I71.40 - Abdominal aortic aneurysm, without rupture, unspecified Category: Medical Qualifiers: Abdominal aorta location: infrarenal aorta Qualified Code(s): I71.43 - Infrarenal abdominal aortic aneurysm, without rupture Plan: In short patient has radiologic evidence of a AAA on ultrasound of a 1.2 saccular aneurysm in the distal aspect. Overall measuring 3 cm. We have discussed the pathophysiology of aortic aneurysms and the risk of ruptures. We have discussed rupture risk based on size. In addition we have discussed conservative measures and risk factor modification for prevention of increase in size of the aneurysm. the patient is scheduled for surveillance follow-up in approximately 1 year. Thank you for allowing us to participate in the care of this patient Plan Patient was informed and verbally consented to the use of an ambient scribe for clinic note documentation during this visit. Orders: Orders US abdominal aortic aneurysm 1 Year I71.43 - Infrarenal abdominal aortic aneurysm, without rupture Coding Level of Care Code Est Pt Level 4 (26684) Complex EM visit Add On G2211 Diagnoses Infrarenal abdominal aortic aneurysm (AAA) without rupture I71.43 Abdominal aorta location: infrarenal aorta
[2025-09-08 11:14] VITALS: BMI 40.3
--- OUTSIDE RECORDS SUMMARY | 2025-09-08 13:46 | XMS_ITS | Encounter Summary ---
Author Organization [facility] Address [address] [place] [address] Phone Care Team Providers Care Welding Machine Operator Helper Arc Name Role Phone Singh Tilley MD Primary Care Provider [phone] Singh Tilley MD Primary Care Provider [phone] Encounter Details Date Type Department Care Team (Late st Contact Info) Description 11/12/2024 Procedure Pass [facility], Ct Scan - [facility] [address] [place] [address] Social History Tobacco Use Types Packs/Day Years Used Date Smoking Tobacco: Never Assessed Education Answer Date Recorded Are you interested [...] as of this encounter Plan of Treatment Not on file documented as of this encounter Visit Diagnoses Not on filedocumented in this encounter Care Teams Welding Machine Operator Helper Arc Relationship Specialty Start Date End Date Singh Tilley MD PCP - General Internal Medicine 08/06/24 11/26/24 Singh Tilley MD [address] [place] [address] [email or web address] PCP - General Internal Medicine 11/27/24 documented as of this encounter Additional Source Comments The information contained in this document represents components of the legal health record. It is not the complete legal health record.[facility]
--- OUTSIDE RECORDS SUMMARY | 2025-09-08 13:46 | XMS_ITS | Encounter Summary ---
Author Organization [employer] Address [address] [place] [address] 7 [place] [address] Care Team Providers Care Web Architect Name Role Phone Singh Tilley MD Primary Care Provider + [phone] Reason for Referral * Consultation (Urgent) - Closed Specialty Diagnoses / Procedures Referred By Contac t Referred To Contact Endocrinology Diagnoses Thyroid nodule Singh Tilley MD [address] [place] [address] Phone: tel: fax: [facility] Adult, Endocrinology [address] [place] [address] Phone: tel: fax: Referral ID Status Reason Start Date Expiration Date V isits Requested Visits Authorized [id number] Closed Specialty Services Required 12/29/2024 12/29/2025 6 6 Encounter Details Date Type Department Care Team ([facility] st Contact Info) Description 12/21/2024 Orders Only [facility] [address] [place] [phone] Singh Tilley MD [address] [place] [address] Thyroid nodule (Primary Dx) Social History Tobacco [...] the past 12 months, has t he [employer], gas, oil or water company threatened to [...] AM EST documented as of this encounter Plan of Treatment Scheduled Referrals Name Type Priority Associated Diagnoses Order Schedule Referral to Endocrinology Outpatient Referral Urgent Thyroid nodule Expected: 12/21/2024 (Approximate), Expires: 12/21/2025 documented as of this encounter Visit Diagnoses Diagnosis Thyroid nodule- Primary Nontoxic uninodular goiter documented in this encounter Care Teams Web Architect Relationship Specialty Start Date End Date Singh Tilley MD [address] [place] [address] PCP - General Internal Medicine 06/23/24 documented as of this encounter
--- OUTSIDE RECORDS SUMMARY | 2025-09-08 13:46 | XMS_ITS | Encounter Summary ---
Author Organization [employer] Address [address] [place] [address] Care Team Providers Care Reroller Hand Name Role Phone Singh Tilley MD Primary Care Provider [phone] Encounter Details Date Type Department Care Team ([facility] Contact Info) Description 09/28/2024 Orders Only [facility] [address] [place], [place] [phone] Provider, Not In System Social History Tobacco Use Types Packs/Day Years Used Date Smoking Tobacco: Former Cigarettes 0.5 1 Passive Smoke Exposure: Past Smokeless Tobacco: Never [...] the past 12 months, has t he electric, gas, oil or water company threatened to [...] on file documented as of this encounter Procedures Procedure Name Priority Date/Time Associated Diagnosis Comments LUNG CANCER SCREENING Routine 09/21/2024 9:57 AM EST documented in this encounter Results * Hm Lung Cancer Screning (09/21/2024 9:57 AM EST) Anatomical Region Laterality Modality Other us Not In System Provider HEALTH MAINTENANCE Final Result documented in this encounter Visit Diagnoses Not on filedocumented in this encounter Care Teams Reroller Hand Relationship Specialty Start Date End Date Singh Tilley MD [address] [place] [address] PCP - General Internal Medicine 06/23/24 documented as of this encounter
--- OUTSIDE RECORDS SUMMARY | 2025-09-08 13:46 | XMS_ITS | Encounter Summary ---
Author Organization [employer] Address [address] [facility] 7t [place] [address] Care Team Providers Care Director Of Labor Relations Name Role Phone Singh Tilley MD Primary Care Provider + [phone] Reason for Visit * Reason Comments Med Refill Encounter Details Date Type Department Care Team ([facility] Contact Info) Description 09/07/[address] [phone] Singh Tilley MD [address] [place] [address] Social History Tobacco Use Types Packs/Day Years [...] AM EST documented as of this encounter Miscellaneous Notes * Telephone Encounter - Singh Tilley MD - 09/07/2025 4:56 PM EST Approve 3 refills * Telephone Encounter - Kath Bravo MA - 09/07/2025 7:35 AM EST Patient has not filled it since last September with 90 days. Im not sure if we need to send. * Telephone Encounter - Kath Bravo MA - 09/07/2025 7:35 AM EST PCP: Singh Tilley MD Last in-person office visit: 02/02/2025 Singh Tilley MD Lab Results Component Value Date BUN 32 (H) 11/17/2024 CREATININE 1.03 11/17/2024 EGFR 79 11/17/2024 HGBA1C 6.1 (H) 08/02/2024 K 4.9 11/17/2024 TSH 0.94 08/02/2024 Assessment: [x] Protocol passed [] Lab due [] Appointment due Plan: [x] Please refill for 90 days [] Lab [] BMP [] TSH [] A1C [] Appointment due: No future appointments. Comments: documented in this encounter Plan of Treatment Not on file documented as of this encounter Visit Diagnoses Not on filedocumented in this encounter Care Teams Director Of Labor Relations Relationship Specialty Start Date End Date Singh Tilley MD [address] [place] [address] PCP - General Internal Medicine 06/23/24 documented as of this encounter
--- OUTSIDE RECORDS SUMMARY | 2025-09-08 13:46 | XMS_ITS | Encounter Summary ---
Author Organization [facility] Address [address] [facility] [address] [place] [address] Phone Care Team Providers Care Brokerage Office Manager Name Role Phone Singh Tilley MD Primary Care Provider +1- [phone] Singh Tilley MD Primary Care Provider +1- [phone] Reason for Referral * Outpatient Procedure - Closed Specialty Diagnoses / Procedures Referred By Henrique mcrae Referred To Contact Radiology Diagnoses Absent carotid pulse Procedures US Carotid Duplex Complete (Bilateral) Singh Tilley MD Phone: tel: fax: mailto:[email or web address] Referral ID Status Reason Start Date Expiration Date Visits Re quested Visits Authorized [id number] Closed 08/05/2024 08/05/2025 1 1 * MRI/CAT Scan - Closed Specialty Diagnoses / Procedures Referred By Henrique mcrae Referred To Contact Radiology Diagnoses Former smoker Procedures CT Chest Lung Cancer Screening Initial Or Annual Singh Tilley MD Phone: tel: fax: mailto:[email or web address] Referral ID Status Reason Start Date Expiration Date Visits Re quested Visits Authorized [id number] Closed 08/05/2024 08/05/2025 1 1 Encounter Details Date Type Department Care Team ([facility] st Contact Info) Description 08/05/2024 Transcribe Orders Virtual Department [address] [place] [address] Singh Tilley MD [address] [place] [address] [email or web address] Former smoker (Primary Dx); Absent carotid pulse; Wheeze Social History Tobacco Use Types Packs/Day Years [...] on file documented as of this encounter Results * CT CHEST LUNG CANCER SCREENING INITIAL (09/21/2024 1:20 PM EST) Anatomical Region Laterality Modality Chest Computed Tomogra phy 09/27/2024 10:5 6 AM EST Addenda Addendum by Zachary Jon MD on 09/27/2024 3:45 PM EST ADDENDUM: There is a 2 cm right lobe of the thyroid nodule as mentioned in the findings section. This could be further evaluated with thyroid ultrasound as clinically appropriate. Impressions 09/27/2024 11:04 AM EST Lung-RADS Category: 3/S. Multiple pulmonary nodules. The dominant solid nodule is located in the left upper lobe and has a mean size of 6 mm (series 5, image 95). The category-determining solid nodule is probably benign, with a low likelihood of becoming a clinically active cancer. There are potentially significant incidental finding(s): - severe amount of coronary calcifications - liver lesion - kidney lesion RECOMMENDATIONS: Follow-up abdominal MRI to better characterize liver and renal lesions. Lung-RADS Follow-up Lung Cancer Screening Chest CT in 6-7 months. To order, please type CT CHEST SCREENING ([email or web address]) and select appropriate FOLLOW UP Imaging Interval. Recommendation for potentially significant incidental finding: follow up as clinically indicated. Explanation of the Lung-RADS categories can be found at: [email or web address] A clinically significant result was initiated on 09/27/2024 11:04 AM, Message ID [id number]. Narrative 09/27/2024 11:[address] CHEST LUNG CANCER SCREENING INITIAL Referring clinician's provided indication for this examination in [facility]: Lung Cancer Screening - FORMER smoker, quit in past 15 yrs (20+ pk-yrs, age 50-80) - ICD-10 Z87.891 TECHNIQUE: Low dose multidetector CT of the chest was performed without intravenous contrast using tailored dose modulation techniques. COMPARISON: None available FINDINGS: Devices/Tubes/Lines: None. Lungs: The central airways are patent. There is mild diffuse bronchial wall thickening. Mild paraseptal emphysema. Subpleural reticular opacities at the lung bases bilaterally. 4 mm right upper lobe nodule (5:109). 3 mm right upper lobe nodule along the fissure (5:200). 6 mm left upper lobe nodule (5:95). 4 mm left upper lobe nodule (5:164). Pleura: No pleural effusion or pneumothorax. Mediastinum: Heterogeneous, enlarged thyroid gland with right-sided thyroid nodule measuring 2 cm. Severe amount of coronary calcifications. Aortic valve calcification. No pericardial effusion. Lymph Nodes: No enlarged supraclavicular, axillary, mediastinal, or hilar lymph nodes, within the limitations of this unenhanced technique. Upper Abdomen: Absence of intravenous contrast and low dose technique limits sensitivity for detecting small lesions, solid organ and vascular findings. Low-attenuation lesion in the right hepatic lobe measures 3 cm and 5 Hounsfield units (5:360), likely a cyst or hemangioma but incompletely characterized. Exophytic lesion arising from the medial cortex of the right kidney (5:403). Is incompletely characterized, measuring 2.3 cm. Chest Wall: No acute abnormality. Bones: No destructive bone lesions. Procedure Note Zachary Jon MD - 09/27/2024 CT CHEST LUNG CANCER SCREENING INITIAL Referring clinician's provided indication for this examination in [facility]:Lung Cancer Screening - FORMER smoker, quit in past 15 yrs (20+ pk-yrs,age 50-80) - ICD-10 Z87.891 TECHNIQUE: Low dose multidetector CT of the chest was performed withoutintravenous contrast using tailored dose modulation techniques. COMPARISON: None available FINDINGS: Devices/Tubes/Lines: None. Lungs: The central airways are patent. There is mild diffuse bronchialwall thickening. Mild paraseptal emphysema. Subpleural reticular opacities at the lung bases bilaterally. 4 mm right upper lobe nodule (5:109). 3 mm right upper lobe nodule along the fissure (5:200). 6 mm left upper lobe nodule (5:95). 4 mm left upper lobe nodule (5:164). Pleura: No pleural effusion or pneumothorax. Mediastinum: Heterogeneous, enlarged thyroid gland with right-sidedthyroid nodule measuring 2 cm. Severe amount of coronary calcifications.Aortic valve calcification. No pericardial effusion. Lymph Nodes: No enlarged supraclavicular, axillary, mediastinal, or hilarlymph nodes, within the limitations of this unenhanced technique. Upper Abdomen: Absence of intravenous contrast and low dose techniquelimits sensitivity for detecting small lesions, solid organ and vascularfindings. Low-attenuation lesion in the right hepatic lobe measures 3 cm and 5Hounsfield units (5:360), likely a cyst or hemangioma but incompletelycharacterized. Exophytic lesion arising from the medial cortex of the right kidney(5:403). Is incompletely characterized, measuring 2.3 cm. Chest Wall: No acute abnormality. Bones: No destructive bone lesions. IMPRESSION: Lung-RADS Category: 3/S. Multiple pulmonary nodules. The dominant solidnodule is located in the left upper lobe and has a mean size of 6 mm(series 5, image 95). The category-determining solid nodule is probablybenign, with a low likelihood of becoming a clinically active cancer. There are potentially significant incidental finding(s): - severe amount of coronary calcifications - liver lesion - kidney lesion RECOMMENDATIONS: Follow-up abdominal MRI to better characterize liver and renal lesions. Lung-RADS Follow-up Lung Cancer Screening Chest CT in 6-7 months. To order, please type CT CHEST SCREENING (CT.[email or web address]) and selectappropriate FOLLOW UP Imaging Interval. Recommendation for potentially significant incidental finding: follow upas clinically indicated. Explanation of the Lung-RADS categories can be found at:[email or web address] A clinically significant result was initiated on 09/27/2024 11:04 AM,Message ID [id number]. us Singh Tilley MD IMG CT CHEST Edited Res ult - Final * US Carotid Duplex Complete (Bilateral) (09/21/2024 1:18 PM EST) Anatomical Region Laterality Modality Heart, Thoracic Vasculature, Neck Ultrasound 09/21/2024 2:37 PM EST Narrative 09/22/2024 1:37 PM EST US CAROTID DUPLEX COMPLETE (BILATERAL) Referring clinician's provided indication for this examination in Epic: Outside Radiology Order; absent carotid pulse TECHNIQUE: A duplex ultrasound evaluation of the common carotid, internal carotid, external carotid, vertebral, and subclavian arteries was performed using armendariz scale, color duplex and spectral Doppler analysis. COMPARISON: No relevant previous exam FINDINGS: Exam Quality: Technically adequate exam demonstrates: RIGHT Common Carotid Artery (cm/s): Proximal Systolic: 110 Proximal Diastolic: 14 Mid Systolic: 109 Mid Diastolic: 16 Distal Systolic: 95 Distal Diastolic: 20 Internal Carotid Artery (cm/s): Proximal Systolic: 70 Proximal Diastolic: 21 Mid Systolic: 81 Mid Diastolic: 26 Distal Systolic: 81 Distal Diastolic: 23 External Carotid Artery (cm/s): Systolic: 98 Diastolic: 14 Vertebral Artery (cm/s): Systolic: 47 Diastolic: 12 Subclavian Artery (cm/s): Systolic: 167 Diastolic: 0 ICA/CCA Ratio: 0.85 ICA Stenosis: Less than 50% ICA Plaque: Heterogeneous LEFT Common Carotid Artery (cm/s): Proximal Systolic: 104 Proximal Diastolic: 16 Mid Systolic: 116 Mid Diastolic: 25 Distal Systolic: 120 Distal Diastolic: 27 Internal Carotid Artery (cm/s): Proximal Systolic: 71 Proximal Diastolic: 17 Mid Systolic: 88 Mid Diastolic: 30 Distal Systolic: 85 Distal Diastolic: 25 External Carotid Artery (cm/s): Systolic: 143 Diastolic: 24 Vertebral Artery (cm/s): Systolic: 46 Diastolic: 9 Subclavian Artery(cm/s): Systolic: 130 Diastolic: 0 ICA/CCA Ratio: 0.73 ICA Stenosis: Less than 50% ICA Plaque: Heterogeneous Abbreviations: CCA = Common Carotid Artery. ICA = Internal Carotid Artery. ECA = External Carotid Artery. Vert = Vertebral Artery. ICA/CCA Ratio = maximal ICA PSV divided by the distal CCA PSV. DIRECT TEST FINDINGS: Right: Doppler flow velocities and waveform contours demonstrate no hemodynamically significant elevation throughout the internal carotid artery. No plaque is visualized in the common carotid artery. Unremarkable external carotid artery. Anterograde flow is noted in the vertebral artery. The subclavian artery is patent. Left: Doppler flow velocities and waveform contours demonstrate no hemodynamically significant elevation throughout the internal carotid artery. No plaque is visualized in the common carotid artery. Unremarkable external carotid artery. Anterograde flow is noted in the vertebral artery. The subclavian artery is patent. IMPRESSIONS: 1. <50% stenosis noted in the right internal carotid artery. 2. <50% stenosis noted in the left internal carotid artery. 3. No stenosis is noted in the common carotid arteries bilaterally. 4. Unremarkable external carotid arteries bilaterally. 5. Antegrade flow in the bilateral cervical vertebral arteries. 6. Normal examination of the bilateral subclavian arteries. STENOSIS: Internal carotid artery stenosis by duplex ultrasonography has been validated by comparing findings with angiographic stenosis. NASCET methods were used, where the most severe stenosis represents the numerator, and the normal internal carotid artery diameter distal to the stenosis where the blackmon are parallel represents the denominator. Procedure Note Michelet Talamantes MD - 09/22/2024 US CAROTID DUPLEX COMPLETE (BILATERAL) Referring clinician's provided indication for this examination in Epic:Outside Radiology Order; absent carotid pulse TECHNIQUE: A duplex ultrasound evaluation of the common carotid, internalcarotid, external carotid, vertebral, and subclavian arteries wasperformed using armendariz scale, color duplex and spectral Doppler analysis. COMPARISON: No relevant previous exam FINDINGS: Exam Quality: Technically adequate exam demonstrates: RIGHT Common Carotid Artery (cm/s): Proximal Systolic: 110 Proximal Diastolic: 14 Mid Systolic: 109 Mid Diastolic: 16 Distal Systolic: 95 Distal Diastolic: 20 Internal Carotid Artery (cm/s): Proximal Systolic: 70 Proximal Diastolic: 21 Mid Systolic: 81 Mid Diastolic: 26 Distal Systolic: 81 Distal Diastolic: 23 External Carotid Artery (cm/s): Systolic: 98 Diastolic: 14 Vertebral Artery (cm/s): Systolic: 47 Diastolic: 12 Subclavian Artery (cm/s): Systolic: 167 Diastolic: 0 ICA/CCA Ratio: 0.85 ICA Stenosis: Less than 50% ICA Plaque: Heterogeneous LEFT Common Carotid Artery (cm/s): Proximal Systolic: 104 Proximal Diastolic: 16 Mid Systolic: 116 Mid Diastolic: 25 Distal Systolic: 120 Distal Diastolic: 27 Internal Carotid Artery (cm/s): Proximal Systolic: 71 Proximal Diastolic: 17 Mid Systolic: 88 Mid Diastolic: 30 Distal Systolic: 85 Distal Diastolic: 25 External Carotid Artery (cm/s): Systolic: 143 Diastolic: 24 Vertebral Artery (cm/s): Systolic: 46 Diastolic: 9 Subclavian Artery(cm/s): Systolic: 130 Diastolic: 0 ICA/CCA Ratio: 0.73 ICA Stenosis: Less than 50% ICA Plaque: Heterogeneous Abbreviations: CCA = Common Carotid Artery. ICA = Internal Carotid Artery. ECA =External Carotid Artery. Vert = Vertebral Artery. ICA/CCA Ratio = maximalICA PSV divided by the distal CCA PSV. DIRECT TEST FINDINGS: Right: Doppler flow velocities and waveform contours demonstrate nohemodynamically significant elevation throughout the internal carotidartery. No plaque is visualized in the common carotid artery.Unremarkable external carotid artery. Anterograde flow is noted in thevertebral artery. The subclavian artery is patent. Left: Doppler flow velocities and waveform contours demonstrate nohemodynamically significant elevation throughout the internal carotidartery. No plaque is visualized in the common carotid artery.Unremarkable external carotid artery. Anterograde flow is noted in thevertebral artery. The subclavian artery is patent. IMPRESSIONS: 1. <50% stenosis noted in the right internal carotid artery. 2. <50% stenosis noted in the left internal carotid artery. 3. No stenosis is noted in the common carotid arteries bilaterally. 4. Unremarkable external carotid arteries bilaterally. 5. Antegrade flow in the bilateral cervical vertebral arteries. 6. Normal examination of the bilateral subclavian arteries. STENOSIS: Internal carotid artery stenosis by duplex ultrasonography hasbeen validated by comparing findings with angiographic stenosis. NASCETmethods were used, where the most severe stenosis represents thenumerator, and the normal internal carotid artery diameter distal to thestenosis where the blackmon are parallel represents the denominator. Singh Tilley MD [facility] NEUROVASCULAR Final Result * Pulmonary Function Test Reason for Exam: Dyspnea/Shortness of Breath; Type of PFT Test: Spirometry with bronchodilator, DLCO, Lung Volumes; Performing Location: [facility] (09/21/2024 11:46 AM EST) [facility] Signature FEV1 3.34 liters FVC 4.39 liters FEV1/FVC 76 % TLC 6.72 liters DLCO 28.09 ml/mmHg sec Anatomical Region Laterality Modality Other Impressions 09/21/2024 11:46 AM EST PULMONARY FUNCTION STUDIES Full pulmonary function studies were performed on this 69 y.o. year-old male for evaluation of dyspnea. Review of the medical record reveals that the patient is a former cigarette smoker and current marijuana smoker moker. Prior pulmonary function studies are not available for comparison. SPIROMETRY: The FEV1 is normal at 3.34 L or 101% predicted. The FVC is normal at 4.39 L or 100% predicted. The FEV1/FVC ratio is normal at 76%. After the administration of a bronchodilator agent, there is no technically significant change. FLOW-VOLUME LOOPS: Evaluation of the flow-volume loops reveals normal morphology of both the inspiratory and expiratory limbs with no significant difference when comparing the tracings performed pre- and post-bronchodilator. LUNG VOLUME MEASUREMENTS BY PLETHYSMOGRAPHY: The total lung capacity is normal at 6.72 L or 88% predicted. The RV/TLC ratio is normal at 31%. DIFFUSION CAPACITY: The diffusion capacity is normal at 28.1 mL/mmHg sec or 102% predicted. Resting oxygen saturation is 96% on room air. IMPRESSION: Normal pulmonary function study. Technical Note: As of 09/14/2025, the [facility] Pulmonary Function Testing (PFT) Laboratory transitioned from using race-specific to using race-neutral equations for determining lung function predicted values for all persons. Due to this change some individuals previously classified as either normal or abnormal may now change from one to the other category without a true change in lung function. Such changes, as well as changes in severity classification, should be considered broadly and in their clinical context. Absolute values of lung function are unaffected. For further questions please contact the interpreting physician or PFT superintendent geophysical laboratory. For further discussion of this issue please see Tom miller al [facility] 2022;207(3):978. Please Note: Not all PFT labs within, or outside of, our system will be transitioning to new reference equations at the same time. For this reason, please pay close attention to absolute values when comparing results done at different testing locations within or outside of our system. us Singh Tilley MD PFT ORDERABLES Final Resu lt documented in this encounter Visit Diagnoses Diagnosis Former smoker- Primary Personal history of tobacco use, presenting hazards to health Absent carotid pulse Wheeze Wheezing Former smoker Personal history of tobacco use, presenting hazards to health Absent carotid pulse Wheeze Wheezing Absent carotid pulse Former smoker Personal history of tobacco use, presenting hazards to health documented in this encounter Care Teams Brokerage Office Manager Relationship Specialty Start Date End Date Singh Tilley MD PCP - General Internal Medicine 08/06/24 11/26/24 Singh Tilley MD [address] [place] [phone] PCP - General Internal Medicine 11/27/24 documented as of this encounter Additional Source Comments The information contained in this document represents components of the legal health record. It is not the complete legal health record.[facility]
--- OUTSIDE RECORDS SUMMARY | 2025-09-08 13:46 | XMS_ITS | Encounter Summary ---
Author Organization [employer] Address [address] [place] [address] Care Team Providers Care Multiple Drill Operator Name Role Phone Singh Tilley MD Primary Care Provider [phone] Encounter Details Date Type Department Care Team ([facility] Contact Info) Description 07/30/2024 Orders Only [place] [facility] [address] [place], [place] [id number] Provider, Not In System Social History Tobacco Use Types Packs/Day Years Used Date Smoking Tobacco: Every Day Cigarettes 0.5 1 Smokeless Tobacco: Never Alcohol Answer Date Recorded How often do you have a drink containing alcohol ? 0 08/02/2024 How many drinks containing a lcohol do you have on a typical day when you are drinking? 0 08/02/2024 How often do you have six or more drinks on one occasion? 0 08/02/2024 Housing Stability Answer Date Recorded What is your housing situation today? I have florence yi 08/02/[address] you li [...] AM EST documented as of this encounter Functional Status * Over the past 2 weeks, how often have you been bothered by any of the following problems? Question Answer Date of Assessment Author Little interest or pleasure in doing things Not at all 08/02/2024 10:21 AM EDT Fe Thompson Feeling down, depressed, or hopeless Not at all 08/02/2024 10:21 AM EDT Fe Thompson Patient Health Questionnaire -2 Score 0 08/02/2024 10:21 AM EDT Fe Thompson documented as of this encounter Plan of Treatment Not on file documented as of this encounter Procedures Procedure Name Priority Date/Time Associated Diagnosis Comments HM COLONOSCOPY Routine 03/16/2021 11:33 AM EDT documented in this encounter Results * Hm Colonoscopy (03/16/2021 11:33 AM EDT) us Not In System Provider [facility] MAINTENANCE Edited Result - Final documented in this encounter Visit Diagnoses Not on filedocumented in this encounter Care Teams Multiple Drill Operator Relationship Specialty Start Date End Date Singh Tilley MD [address] [place] [id number] PCP - General Internal Medicine 06/23/24 documented as of this encounter
--- OUTSIDE RECORDS SUMMARY | 2025-09-08 13:46 | XMS_ITS | Encounter Summary ---
Author Organization [employer] Address [address] [place] [address] Care Team Providers Care Maintenance Journeyman Name Role Phone Singh Tilley MD Primary Care Provider [phone] Encounter Details Date Type Department Care Team ([facility] Contact Info) Description 06/01/2025 Orders Only [place] [facility] Information Management [address] [place], [place] [phone] Provider, Not In System Social History Tobacco [...] Procedure Name Priority Date/Time Associated Diagnosis Comments US ABDOMINAL AORTIC ANEURYSM Routine 05/30/2025 10:23 AM EDT documented in this encounter Results * US ABDOMINAL AORTIC ANEURYSM (05/30/2025 10:23 AM EDT) Anatomical Region Laterality Modality Abdomen Ultrasound us Not In System Provider IMG US PROCEDURES Edited Result - Final documented in this encounter Visit Diagnoses Not on filedocumented in this encounter Care Teams Maintenance Journeyman Relationship Specialty Start Date End Date Singh Tilley MD [address] [place] [id number] PCP - General Internal Medicine 06/23/24 documented as of this encounter
--- OUTSIDE RECORDS SUMMARY | 2025-09-08 13:46 | XMS_ITS | Encounter Summary ---
Author Organization [facility] Address [address] [place] [address] Phone Care Team Providers Care Terrazzo Finisher Name Role Phone Singh Tilley MD Primary Care Provider [phone]- [phone] Singh Tilley MD Primary Care Provider [phone]- [phone] Encounter Details Date Type Department Care Team (Late st Contact Info) Description 11/12/2024 Procedure [facility], Ct Scan - [facility] [address] [place] [address] Social History Tobacco Use Types Packs/Day Years [...] on filedocumented in this encounter Care Teams Terrazzo Finisher Relationship Specialty Start Date End Date Singh Tilley MD PCP - General Internal Medicine 08/06/24 11/26/24 Singh Tilley MD [address] [place] [address] [email or web address] PCP - General Internal Medicine 11/27/24 documented as of this encounter Additional Source Comments The information contained in this document represents components of the legal health record. It is not the complete legal health record.[facility]
--- OUTSIDE RECORDS SUMMARY | 2025-09-08 13:46 | XMS_ITS | Encounter Summary ---
Author Organization [facility] Address [address] [place] [address] Phone Care Team Providers Care Medication Care Manager Name Role Phone Singh Tilley MD Primary Care Provider [phone]- [phone] Singh Tilley MD Primary Care Provider [phone]- [phone] Reason for Referral * MRI/CAT Scan - Closed Specialty Diagnoses / Procedures Referred By Henrique mcrae Referred To Contact Radiology Diagnoses Abdominal discomfort Procedures CT Abdomen/Pelvis Ori Dodson PA [address] [place] [address] Phone: tel: fax: Referral ID Status Reason Start Date Expiration Date Visits Re quested Visits Authorized [id number] Closed 11/12/2024 11/12/2025 1 1 Encounter Details Date Type Department Care Team (Latest Contact Info) Description 11/12/2024 Transcribe Orders Virtual Department [address] [place] [address] Ori Dodson PA [address] [place] [address] Abdominal discomfort (Primary Dx) Social History Tobacco Use Types [...] as of this encounter Results * CT ABDOMEN/PELVIS WITH CONTRAST (11/27/2024 9:25 AM EST) Anatomical Region Laterality Modality Abdomen, Pelvis Computed Tomogra phy 11/29/2024 3:57 PM EST Impressions 11/29/2024 4:08 PM EST 1. Bilateral renal lesions are incompletely characterized on this study. Follow-up renal mass protocol MRI is recommended. 2. No bowel obstruction or bowel wall thickening to suggest inflammation. 3. No free intraperitoneal gas or fluid collection. 4. Liver lesions consistent with cysts. 5. There is a 3.2 cm infrarenal abdominal aortic aneurysm. No priors to establish stability. Vascular consultation and follow-up/management recommended. RECOMMENDATIONS: * Renal mass protocol MRI * Vascular consultation for follow-up/management of infrarenal abdominal aortic aneurysm. A clinically significant result was initiated on 11/29/2024 4:08 PM, Message ID [id number]. Narrative 11/29/2024 4:[address] ABDOMEN/PELVIS WITH CONTRAST Referring clinician's provided indication for this examination in Epic: * LLQ abdominal pain; Outside Radiology Order; BOWEL CHANGES TECHNIQUE: Multidetector-row CT of the abdomen and pelvis was performed after administration of intravenous contrast using tailored dose modulation techniques. Images were reconstructed in the axial, coronal, and sagittal planes. COMPARISON: No prior CT abdomen/pelvis available for review. FINDINGS: Lower Chest: CT chest from the same day is reported separately. Liver: There is a 3 cm right hepatic lobe lesion (2:15) measuring 7 Hounsfield units consistent with a cyst. There is a 1.2 cm left hepatic lobe lesion (3:2707 measuring 8 Hounsfield units consistent with a cyst. Biliary: No biliary ductal dilatation. Spleen: No splenomegaly or focal lesions. Pancreas: No pancreatic ductal dilatation or peripancreatic inflammation. Adrenal Glands: No nodules. Kidneys/Ureters: No hydronephrosis. Bilateral renal lesions are incompletely characterized. The largest is exophytic from the lower pole on the left, measuring 6 cm (6:56) with indeterminate Hounsfield units (40 Hounsfield units). Multiple other renal lesions are indeterminate including 2.4 cm right upper pole (2:23), 1.4 cm right lower pole (2:31). Follow-up MRI recommended. Bowel: No distention or wall thickening. Peritoneum/Retroperitoneum: No free intraperitoneal gas or air-fluid level. Lymph Nodes: No lymphadenopathy. Patent portal vein. Pelvic Organs/Bladder: No mass. Vessels: Focal infrarenal abdominal aortic aneurysm (3:107 and 7:53) measuring 3.2 cm. Diffuse calcific atherosclerosis. Patent portal vein. Bones/Soft Tissues: Small bilateral fat-containing inguinal hernias. Small fat-containing umbilical hernia. Degenerative disc and facet changes in the lumbar spine. Procedure Note Zachary Jon MD - 11/29/2024 CT ABDOMEN/PELVIS WITH CONTRAST Referring clinician's provided indication for this examination in Epic: *LLQ abdominal pain; Outside Radiology Order; BOWEL CHANGES TECHNIQUE: Multidetector-row CT of the abdomen and pelvis was performedafter administration of intravenous contrast using tailored dosemodulation techniques. Images were reconstructed in the axial, coronal,and sagittal planes. COMPARISON: No prior CT abdomen/pelvis available for review. FINDINGS: Lower Chest: CT chest from the same day is reported separately. Liver: There is a 3 cm right hepatic lobe lesion (2:15) measuring 7 Hounsfieldunits consistent with a cyst. There is a 1.2 cm left hepatic lobe lesion (3:2707 measuring 8 Hounsfieldunits consistent with a cyst. Biliary: No biliary ductal dilatation. Spleen: No splenomegaly or focal lesions. Pancreas: No pancreatic ductal dilatation or peripancreaticinflammation. Adrenal Glands: No nodules. Kidneys/Ureters: No hydronephrosis. Bilateral renal lesions are incompletely characterized. The largest isexophytic from the lower pole on the left, measuring 6 cm (6:56) withindeterminate Hounsfield units (40 Hounsfield units). Multiple other renallesions are indeterminate including 2.4 cm right upper pole (2:23), 1.4 cmright lower pole (2:31). Follow-up MRI recommended. Bowel: No distention or wall thickening. Peritoneum/Retroperitoneum: No free intraperitoneal gas or air-fluidlevel. Lymph Nodes: No lymphadenopathy. Patent portal vein. Pelvic Organs/Bladder: No mass. Vessels: Focal infrarenal abdominal aortic aneurysm (3:107 and 7:53)measuring 3.2 cm. Diffuse calcific atherosclerosis. Patent portal vein. Bones/Soft Tissues: Small bilateral fat-containing inguinal hernias. Smallfat-containing umbilical hernia. Degenerative disc and facet changes inthe lumbar spine. IMPRESSION: 1. Bilateral renal lesions are incompletely characterized on this study.Follow- up renal mass protocol MRI is recommended. 2. No bowel obstruction or bowel wall thickening to suggestinflammation. 3. No free intraperitoneal gas or fluid collection. 4. Liver lesions consistent with cysts. 5. There is a 3.2 cm infrarenal abdominal aortic aneurysm. No priors toestablish stability. Vascular consultation and follow-up/managementrecommended. RECOMMENDATIONS: * Renal mass protocol MRI * Vascular consultation for follow-up/management of infrarenal abdominalaortic aneurysm. A clinically significant result was initiated on 11/29/2024 4:08 PM,Message ID [id number]. Ori SILVER IMLiliana CT ABD/PELVIS Final Result documented in this encounter Visit Diagnoses Diagnosis Abdominal discomfort- Primary Abdominal pain, unspecified site Abdominal discomfort Abdominal pain, unspecified site documented in this encounter Care Teams Medication Care Manager Relationship Specialty Start Date End Date Singh Tilley MD PCP - General Internal Medicine 08/06/24 11/26/24 Singh Tilley MD [address] [place] [id number] PCP - General Internal Medicine 11/27/24 documented as of this encounter Additional Source Comments The information contained in this document represents components of the legal health record. It is not the complete legal health record.[facility]
--- OUTSIDE RECORDS SUMMARY | 2025-09-08 13:46 | XMS_ITS | Encounter Summary ---
Author Organization [employer] Address [address] [place] [address] Care Team Providers Care Semiconductor Wafers Tester Name Role Phone Singh Tilley MD Primary Care Provider [phone] Encounter Details Date Type Department Care Team ([facility] Contact Info) Description 09/27/2024 Orders Only [facility] [address] [place], [place] [id number] Provider, Not In System Social History Tobacco [...] is your housing situation today? I have flroence richmond 08/02/[address] you [...] Diagnosis Comments LUNG CANCER SCREENING Routine 09/21/2024 12:40 PM EST documented in this encounter Results * Hm Lung Cancer Screning (09/21/2024 12:40 PM EST) Anatomical Region Laterality Modality Other us Not In System Provider HEALTH MAINTENANCE Edited Result - Final documented in this encounter Visit Diagnoses Not on filedocumented in this encounter Care Teams Semiconductor Wafers Tester Relationship Specialty Start Date End Date Singh Tilley MD [address] [place] [id number] PCP - General Internal Medicine 06/23/24 documented as of this encounter
--- OUTSIDE RECORDS SUMMARY | 2025-09-08 13:46 | XMS_ITS | Encounter Summary ---
Author Organization [employer] Address [address] [place] [address] Care Team Providers Care Tax Services Intern Name Role Phone Singh Tilley MD Primary Care Provider [phone] Encounter Details Date Type Department Care Team ([facility] Contact Info) Description 09/05/2025 Telephone [facility] [address] [place] [id number] Singh Tilley MD [address] [place] [address] Social History Tobacco Use Types Packs/Day Years [...] encounter Miscellaneous Notes * Telephone Encounter - Christina Batista LPN - 09/05/2025 11:11 AM EST Spoke to pt who was unable to get transportation to appointment today in [place] office , Pt was able to obtain transportation to [place] office 09/06/25 at 920 for an appointment with LM. * Telephone Encounter - Elma Perez - 09/05/2025 9:47 AM EST Patient is calling back because he couldn't make the 1040 today, please try calling back to schedule Call back # [phone] * Telephone Encounter - Christina Batista LPN - 09/05/2025 9:10 AM EST Pt stated has had cold like symptoms for 3 weeks. Pt reports having coughing so hard it feels like he has hurt his abdomen. Pt denies fever at this time. Pt would like to be seen. Appointment scheduled for 09/05/25 at 1040 with ASHLEY in [place] office. Protocol Used: Cough (Adult) Protocol-Based Disposition: See in Office Today Positive Triage Questions: * Severe coughing spells (e.g., whooping sound after coughing, vomiting after coughing) * Patient wants to be seen * Cough has been present for > 3 weeks * All higher-acuity triage questions were negative Care Advice Discussed: * Reassurance and Education - Cough * Cough Syrup With Dextromethorphan * Prevent Dehydration * Avoid Tobacco Smoke * Humidifier * Reasons To Call Back - Difficulty breathing - Cough lasts more than 3 weeks - Fever lasts more than 3 days - You become worse * Telephone Encounter - Elma Perez - 09/05/2025 8:03 AM EST Symptoms: Congestion and Coughing,Sinus Pressure Are you in pain: No How long has this been happenin days Location of pain: Chronic or Acute: Acute Were you discharged from a hospital for this issue: No When: Which Hospital: Accident Related: No Workers Comp / Auto: No Insurance: Name: Address: Automotive Sales Representative's Name: Date of Injury: Phone Number: Fax Number: Claim Number Additional Comments: documented in this encounter Plan of Treatment Not on file documented as of this encounter Visit Diagnoses Not on filedocumented in this encounter Care Teams Tax Services Intern Relationship Specialty Start Date End Date Singh Tilley MD [address] [place] [address] PCP - General Internal Medicine 06/23/24 documented as of this encounter
--- OUTSIDE RECORDS SUMMARY | 2025-09-08 13:46 | XMS_ITS | Encounter Summary ---
Author Organization [facility] Address [address] [place] [address] Phone Care Team Providers Care Tube Mounter Name Role Phone Singh Tilley MD Primary Care Provider [phone]- [phone] Singh Tilley MD Primary Care Provider [phone]- [phone] Reason for Referral * MRI/CAT Scan - Closed Specialty Diagnoses / Procedures Referred By Henrique mcrae Referred To Contact Radiology Diagnoses Pulmonary nodules Procedures CT Chest Ori Dodson PA [address] [place] [address] Phone: tel: fax: Referral ID Status Reason Start Date Expiration Date Visits Re quested Visits Authorized [id number] Closed 11/12/2024 11/12/2025 1 1 Encounter Details Date Type Department Care Team (Latest Contact Info) Description 11/12/2024 Transcribe Orders Virtual Department [address] [place] [address] Ori Dodson PA [address] [place] [address] Pulmonary nodules (Primary Dx) Social History Tobacco Use Types [...] of this encounter Results * CT CHEST WITHOUT CONTRAST (11/27/2024 9:06 AM EST) Anatomical Region Laterality Modality Chest Computed Tomogra phy 11/29/2024 3:46 PM EST Impressions 11/29/2024 4:09 PM EST 1. Stable pulmonary nodules bilaterally measuring up to 6 mm, unchanged compared to 09/21/2024. 2. Patient can return to lung cancer screening in 12 months if this patient remains eligible. Alternatively, follow-up study in 12 months is recommended. 3. Severe coronary calcification. 4. Thyroid nodule measuring 2 cm. Follow-up thyroid ultrasound is advised as clinically appropriate. RECOMMENDATIONS: * Follow-up chest CT in 12 months, as discussed. * Consider follow-up thyroid ultrasound. A clinically significant result was initiated on 11/29/2024 4:09 PM, Message ID [id number]. Narrative 11/29/2024 4:[address] CHEST WITHOUT CONTRAST Referring clinician's provided indication for this examination in [facility]: Outside Radiology Order; MULTIPLE PULMONARY NODULES ON LDCT TECHNIQUE: Multidetector CT of the chest was performed without intravenous contrast using tailored dose modulation. COMPARISON: Prior studies, including 09/21/2024 FINDINGS: Devices/Tubes/Lines: None. Lungs: The central airways are patent. There is mild diffuse bronchial wall thickening. Mild paraseptal predominant emphysema. Atelectasis/scarring at the lung bases. Stable 3 mm right upper lobe nodule (4:76). Stable 4 mm right upper lobe nodule (4:104). Stable 3 mm right upper lobe nodule along the fissure (4:194). Stable 6 mm left upper lobe nodule (4:93). Stable 4 mm left upper lobe nodule (4:163). No new or enlarging pulmonary nodules. Pleura: No pleural effusion or pneumothorax. Mediastinum: Heterogeneous, enlarged thyroid gland with right-sided nodule measuring up to 2 cm again noted (4:58). Severe amount of coronary calcifications. Aortic valve calcification. No pericardial effusion. Lymph Nodes: No enlarged supraclavicular, axillary, mediastinal, or hilar lymph nodes, within the limitations of this unenhanced technique. Upper Abdomen: Please see concurrent abdominal CT for abdominal findings. Chest Wall: Stable. Bones: Degenerative changes throughout the thoracic spine without destructive bone lesions. Procedure Note Zachary Jon MD - 11/29/2024 CT CHEST WITHOUT CONTRAST Referring clinician's provided indication for this examination in Epic:Outside Radiology Order; MULTIPLE PULMONARY NODULES ON LDCT TECHNIQUE: Multidetector CT of the chest was performed without intravenouscontrast using tailored dose modulation. COMPARISON: Prior studies, including 09/21/2024 FINDINGS: Devices/Tubes/Lines: None. Lungs: The central airways are patent. There is mild diffuse bronchialwall thickening. Mild paraseptal predominant emphysema. Atelectasis/scarring at the lungbases. Stable 3 mm right upper lobe nodule (4:76). Stable 4 mm right upper lobe nodule (4:104). Stable 3 mm right upper lobe nodule along the fissure (4:194). Stable 6 mm left upper lobe nodule (4:93). Stable 4 mm left upper lobe nodule (4:163). No new or enlarging pulmonary nodules. Pleura: No pleural effusion or pneumothorax. Mediastinum: Heterogeneous, enlarged thyroid gland with right-sided nodulemeasuring up to 2 cm again noted (4:58). Severe amount of coronarycalcifications. Aortic valve calcification. No pericardial effusion. Lymph Nodes: No enlarged supraclavicular, axillary, mediastinal, or hilarlymph nodes, within the limitations of this unenhanced technique. Upper Abdomen: Please see concurrent abdominal CT for abdominalfindings. Chest Wall: Stable. Bones: Degenerative changes throughout the thoracic spine withoutdestructive bone lesions. IMPRESSION: 1. Stable pulmonary nodules bilaterally measuring up to 6 mm, unchangedcompared to 09/21/2024. 2. Patient can return to lung cancer screening in 12 months if thispatient remains eligible. Alternatively, follow-up study in 12 months isrecommended. 3. Severe coronary calcification. 4. Thyroid nodule measuring 2 cm. Follow-up thyroid ultrasound is advisedas clinically appropriate. RECOMMENDATIONS: * Follow-up chest CT in 12 months, as discussed. * Consider follow-up thyroid ultrasound. A clinically significant result was initiated on 11/29/2024 4:09 PM,Message ID [id number]. Ori CARRERO CT CHEST Final Result documented in this encounter Visit Diagnoses Diagnosis Pulmonary nodules- Primary Other diseases of lung, not elsewhere classified Pulmonary nodules Other diseases of lung, not elsewhere classified documented in this encounter Care Teams Tube Mounter Relationship Specialty Start Date End Date Singh Tilley MD PCP - General Internal Medicine 08/06/24 11/26/24 Singh Tilley MD [address] [place] [id number] PCP - General Internal Medicine 11/27/24 documented as of this encounter Additional Source Comments The information contained in this document represents components of the legal health record. It is not the complete legal health record.[facility]
--- OUTSIDE RECORDS SUMMARY | 2025-09-08 13:46 | XMS_ITS | Clinical Summary ---
Author Organization [facility] Address [address] [place] [address] Care Team Providers Care Canal Boat Captain Name Role Phone Singh Tilley Primary Care Provider [phone] Allergies Active Allergy Reactions Criticality Noted Date [...] (2 of 2 - PCV) 08/29/2022 08/29/2021 Alcohol/Substance Use Screening 11/03/2024 Depression Screening and Follow-Up 11/03/2024 Fall Risk Screening 11/03/2024 Health Care Proxy Review 11/03/2024 Social Drivers of Health Annual Screening 11/03/2024 COVID-19 Vaccine (4 - 2024-2 6 season) 2025 09/07/2021, 03/07/2021, 02/14/2021 Influenza Vaccine (#1) 2025 CT Lung Cancer Screening (Baseline) 11/27/2025 11/27/2024 Diabetes Screening 11/17/2027 11/17/2024, 11/11/2024 RSV Vaccine (60+ years old a nd patients) (1 - 1-dose 75+ series) 2030 Hepatitis C Screening Completed 08/02/2024 Abdominal Aortic Aneurysm (AAA) Screening Completed 11/27/2024 Hepatitis B Vaccines Aged Out No long er eligible based on patient's age to complete this topic Insurance [address] [place] [address] [facility] MCR REPLACE AARP Care Teams Canal Boat Captain Relationship Specialty Start Date End Date WheelerReuben millerSingh [address] [place] [id number] PCP - General Internal Medicine 12/21/24
--- OUTSIDE RECORDS SUMMARY | 2025-09-08 13:46 | XMS_ITS | Encounter Summary ---
Author Organization [facility] Address [address] [place] [phone] Phone Care Team Providers Care Type Cutter Name Role Phone Singh Tilley MD Primary Care Provider [phone] Encounter Details Date Type Department Care Team (Late st Contact Info) Description 05/10/2025 Procedure Pass [facility] [address] [place] [address] Social History Tobacco Use Types Packs/Day Years [...] on filedocumented in this encounter Care Teams Type Cutter Relationship Specialty Start Date End Date Singh Tilley MD [address] [place] [address] [email or web address] PCP - General Internal Medicine 11/27/24 documented as of this encounter Additional Source Comments The information contained in this document represents components of the legal health record. It is not the complete legal health record.[facility]
--- OUTSIDE RECORDS SUMMARY | 2025-09-08 13:47 | XMS_ITS | Clinical Summary ---
Author Organization [facility] Address [address] [facility] [address] [place] [phone] Phone Care Team Providers Care Laborer Pullet Farm Name Role Phone Singh Tilley MD Primary Care Provider [phone]- [phone] Allergies Active Allergy Reactions Criticality Noted Date Comments Sulfa (Sulfonamide Antibiotics) Swelling 06/03 Medications lisinopril (PRINIVIL,ZESTRI L) 20 MG tablet Take 1 tablet by mouth every morning. 09/17/2024 Active atorvastatin (LIPITOR) 80 MG tablet Take 80 mg by mouth. 02/02/2025 Active aspirin 81 MG EC tablet Take 81 mg by mouth. 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 I recommend repeating the ultrasound in a year from the biopsy. Assessment & Plan (04/28/2025 1:28 PM EDT): The patient has right lobe nodule measuring 3.0 x 2.8 x 3.2 cm which was classified as TI-RADS 5. This is highly suspicious for malignancy will schedule for ultrasound-guided fine-needle aspiration. I will also check TPO for evaluation of Josue's thyroiditis because Josue's thyroiditis is associated with papillary thyroid carcinoma. I will repeat TSH with reflex free T4. He was advised that he could do lab work today does not have to be done fasting. Encounters Date Type Department Care Team Description 08/16/2025 11:50 AM EDT Telemedicine [facility] Endocrinology [address] [place] [address] Zachary Valverde DO Nontoxic uninodular goiter (Primary Dx) 08/12/2025 Telephone [facility] Pulmonary, Allergy and Critical Care Medicine [address] [place], [place] [id number] Laxmi Melgoza appt question from Last 3 Months Immunizations Immunization Administration Dates Next Due COVID-19, Unspecified Formulation 03/07/2021, Family History Medical History Relation Comments Cancer Father Heart disease Father Thyroid disease Mother Cancer Sister Relation Status Comments Father Mother Sister Social History Tobacco Use Types Packs/Day Years [...] on file Sexual Orientation Not on file Last Filed Vital Signs Vital Sign Reading Time Taken Comments Blood Pressure 160/77 05/10/2025 1:50 PM EDT Pulse 99 04/28/2025 1:05 PM EDT Temperature 36.7 C (98.1 F) 04/04/2025 9:12 AM EDT Respiratory Rate - - Oxygen Saturation 88% 05/10/2025 1:51 PM EDT Inhaled Oxygen Concentration - - Weight 136.1 kg (300 lb) 04/28/2025 1:05 PM EDT Height 180.3 cm (5' 11 ) 04/28/2025 1:05 PM EDT Body Mass Index 41.84 04/28/2025 1:05 PM EDT Plan of Treatment Health Maintenance Due Date Last Done Comments Adult Td,Tdap Booster 1955 CREATININE LEVEL 1955 LIPID PANEL 1955 POTASSIUM LEVEL 1955 DEPRESSION SCREENING 1967 SMOKING Hx and SMOKELESS TOBACCO SCREENING 1968 HEPATITIS C SCREENING 1973 COLOGUARD 2000 COLONOSCOPY 2000 COLORECTAL CANCER SCREENING 2000 FIT TEST 2000 FOBT 2000 SIGMOIDOSCOPY 2000 VIRTUAL COLONOSCOPY 2000 PNEUMOCOCCAL VACCINES (50+ years) (1 of 1 - PCV) 2005 RSV VACCINE (1 - Risk 50-74 years 1-dose series) 2005 ZOSTER VACCINES (1 of 2) 2005 INFLUENZA VACCINE (#1) 2025 COVID-19 VACCINE (3 - 2024-2 6 season) 2025 03/07/2021, 02/14/2021 ABDOMINAL AORTIC ANEURYSM (AAA) SCREENING Completed 11/27/2024 HEPATITIS A VACCINES Aged Out No long er eligible based on patient's age to complete this topic HIB VACCINES Aged Out No longer eligi ble based on patient's age to complete this topic MENINGOCOCCAL VACCINES (ACWY) Aged Out No longer eligible based on patient's age to complete this topic MENINGOCOCCAL VACCINES (B) Aged Out N o longer eligible based on patient's age to complete this topic Medical Devices Not on file Procedures Procedure Name Priority Date/Time Associated Diagnosis Comments CT ABDOMEN/PELVIS WITH CONTRAST Routine 11/27/2024 9:25 AM EST Abdominal discomfort from Last 3 Months or Most Recently Relevant to Health Maintenance Results * CT ABDOMEN/PELVIS WITH CONTRAST (11/27/2024 [...] initiated on 11/29/2024 4:08 PM, Message ID [id number]. Narrative 11/29/2024 4:[address] ABDOMEN/PELVIS [...] was initiated on 11/29/2024 4:08 PM,Message ID [id number]. Ori SILVER IMG CT ABD/PELVIS Final Result from Last 3 Months or Most Recently Relevant to Health Maintenance Insurance MEDICARE REPLACEMENT MEDICARE REPLACEMENT MEDICARE REPLACEMENT MEDICARE REPLACEMENT MEDICARE REPLACEMENT Care Teams Laborer Pullet Farm Relationship Specialty Start Date End Date Singh Tilley MD [address] [place] [address] [email or web address] PCP - General Internal Medicine 11/27/24 Additional Source Comments The information contained in this document represents components of the legal health record. It is not the complete legal health record.[facility]
--- OUTSIDE RECORDS SUMMARY | 2025-09-08 13:47 | XMS_ITS | Encounter Summary ---
Author Organization [employer] Address [address] [facility] [address] [facility] [place] [address] Care Team Providers Care Supervisor Remelt Name Role Phone Singh Tilley MD Primary Care Provider [phone] Encounter Details Date Type Department Care Team ([facility] Contact Info) Description 01/21/2025 Telephone [facility] [address] [phone] Singh Tilley MD [address] [place] [address] Social History Tobacco Use Types Packs/Day Years [...] your housing situation today? I have florence sing 08/02/[address] you li [...] encounter Miscellaneous Notes * Telephone Encounter - Mick Malave - 01/21/2025 10:09 AM EDT Chetan called in this morning. He was referred to general surgery for gallstones. We sent him to the [facility] With Dr. Sharda Izquierdo. The phone number of this referral is no longer active. I called and confirmed this number is not in service. Can we get a correct phone number for the patient so they can schedule with this specialty group? documented in this encounter Plan of Treatment Not on file documented as of this encounter Visit Diagnoses Not on filedocumented in this encounter Care Teams Supervisor Remelt Relationship Specialty Start Date End Date Singh Tilley MD [address] [place] [address] PCP - General Internal Medicine 06/23/24 documented as of this encounter
--- OUTSIDE RECORDS SUMMARY | 2025-09-08 13:47 | XMS_ITS | Encounter Summary ---
Author Organization [facility] Address [address] [facility] [address] [place] [phone] Phone Care Team Providers Care Pt Sitter Name Role Phone Singh Tilley MD Primary Care Provider [phone] Encounter Details Date Type Department Care Team (Late st Contact Info) Description 12/07/2024 Transcribe Orders Virtual Department [address] [place] [address] Singh Tilley MD [address] [place] [phone] [email or web address] Thyroid nodule (Primary Dx) Social History Tobacco [...] goiter documented in this encounter Care Teams Pt Sitter Relationship Specialty Start Date End Date Singh Tilley MD [address] [place] [phone] [email or web address] PCP - General Internal Medicine 11/27/24 documented as of this encounter Additional Source Comments The information contained in this document represents components of the legal health record. It is not the complete legal health record.[facility]
--- OUTSIDE RECORDS SUMMARY | 2025-09-08 13:47 | XMS_ITS | Encounter Summary ---
Author Organization [employer] Address [address] [place] [address] Care Team Providers Care Celery Cutter Name Role Phone Singh Tilley MD Primary Care Provider [phone] Encounter Details Date Type Department Care Team ([facility] Contact Info) Description 02/07/2025 Orders Only [facility] [address] [place], [place] [phone] Provider, Not In System Social History Tobacco [...] as of this encounter Miscellaneous Notes * Result Encounter Note - Singh Tilley MD - 02/07/2025 2:20 PM EDT Echo cardiogram shows moderate aortic stenosis; done at [facility] cardiology [facility]; please followup with them for further management; documented in this encounter Plan of Treatment Not on file documented as of this encounter Procedures Procedure Name Priority Date/Time Associated Diagnosis Comments TRANSTHORACIC ECHO (TTE) LIMITED Routine 01/25/2025 2:20 PM EDT documented in this encounter Results * Transthoracic echo (TTE) limited (01/25/2025 2:20 PM EDT) us Not In System Provider CV ECHO PROCEDURES Edited Result - Final documented in this encounter Visit Diagnoses Not on filedocumented in this encounter Care Teams Celery Cutter Relationship Specialty Start Date End Date Singh Tilley MD [address] [place] [address] PCP - General Internal Medicine 06/23/24 documented as of this encounter
--- OUTSIDE RECORDS SUMMARY | 2025-09-08 13:47 | XMS_ITS | Encounter Summary ---
Author Organization [employer] Address [address] [facility] [address] [facility] [address] [place] [address] Care Team Providers Care Inset Cutter Name Role Phone Singh Tilley MD Primary Care Provider [phone] Encounter Details Date Type Department Care Team ([facility] Contact Info) Description 02/24/2025 Orders Only [facility] [address] [place], [place] [phone] Provider, Not In System Social History Tobacco [...] Procedure Name Priority Date/Time Associated Diagnosis Comments STRESS TEST ONLY Routine 02/22/2025 2:38 PM EDT documented in this encounter Results * Stress test (02/22/2025 2:38 PM EDT) us Not In System Provider CV STRESS PROCEDURES Renetta l Result documented in this encounter Visit Diagnoses Not on filedocumented in this encounter Care Teams Inset Cutter Relationship Specialty Start Date End Date Singh Tilley MD [address] [place] [address] PCP - General Internal Medicine 06/23/24 documented as of this encounter
--- OUTSIDE RECORDS SUMMARY | 2025-09-08 13:47 | XMS_ITS | Encounter Summary ---
Author Organization [facility] Address [address] [employer] [facility] [address] [place] [address] Phone Care Team Providers Care Ged Instructor Name Role Phone Singh Tilley MD Primary Care Provider [phone] Encounter Details Date Type Department Care Team (Late st Contact Info) Description 12/16/2024 Ancillary Orders Virtual Department [address] [place] [address] Singh Tilley MD [address] [place] [address] [email or web address] Thyroid nodule (Primary Dx) Social History Tobacco [...] documented as of this encounter Results * US Thyroid Gland (12/16/2024 4:35 PM EST) Anatomical Region Laterality Modality Neck, Head, Chest Ultrasound 12/16/2024 4:48 PM EST Impressions 12/16/2024 4:58 PM EST A 3.0 cm right thyroid nodule is a TR-5 lesion. Recommend FNA biopsy. ACR TI-RADS risk category: TR5 (>/= 7 points) ACR TI-RADS recommendation: Fine needle aspiration. ACR TI-RADS recommendations TR5 (>/= 7 points) - FNA if >/= 1cm, follow-up if 0.5 - 0.9 cm every year for 5 years TR4 (4-6 points) - FNA if >/= 1.5cm, follow-up if 1 - 1.4 cm in 1, 2, 3 and 5 years TR3 (3 points)- FNA if >/= 2.5cm, follow-up if 1.5 - 2.4 cm in 1, 3 and 5 years TR2 (2 points) & TR1 (0 points) - No FNA and no follow-up indicated These guidelines for management of thyroid nodules are based on the ACR Thyroid Ultrasound Reporting Lexicon, January 2017: https://doi.org/10.1016.j.[email or web address] A clinically significant result was initiated on 12/16/2024 4:58 PM, Message ID [id number]. Narrative 12/16/2024 4:58 PM EST Procedure: US THYROID GLAND US Indications: Thyroid nodule on CT. Comparison: CT chest from November 27, 2024. Technique: Two-dimensional real-time grayscale ultrasound of the thyroid bed and neck was performed, with color Doppler imaging. FINDINGS: Total number of nodules >/= 1 cm: 1 Background echogenicity: The gland is heterogeneous. Vascularity: There is normal background vascularity to the gland. RIGHT LOBE: 6.1 x 3.5 x 2.6 cm . Nodule #: 1 Size: 3.0 x 2.8 x 3.2 cm Position: Lower gland Composition: Solid/almost completely solid (2 pts) Echogenicity: Isoechoic (1 pt) Shape: Taller than wide (3 pts) Margins: Smooth (0 pts) Echogenic Foci: Macrocalcifications (1 pt) Additional Echogenic foci: None (0 pts) ACR TI-RADS total points: 7 ACR TI-RADS risk category: TR5 (>/= 7 points) ACR TI-RADS recommendation: Fine needle aspiration LEFT LOBE: 5.0 x 2.7 x 2.2 cm . No nodule equal to or larger than 1.0 cm. No TR-5 nodule. ISTHMUS: No suspicious nodules are identified. Cervical lymphadenopathy: None. Parathyroid adenoma: None. Procedure Note Imtiaz Galdamez MD - 12/16/2024 Procedure: US THYROID GLAND US Indications: Thyroid nodule on CT. Comparison: CT chest from November 27, 2024. Technique: Two-dimensional real-time grayscale ultrasound of the thyroidbed and neck was performed, with color Doppler imaging. FINDINGS: Total number of nodules >/= 1 cm: 1 Background echogenicity: The gland is heterogeneous. Vascularity: There is normal background vascularity to the gland. RIGHT LOBE: 6.1 x 3.5 x 2.6 cm . Nodule #: 1 Size: 3.0 x 2.8 x 3.2 cm Position: Lower gland Composition: Solid/almost completely solid (2 pts) Echogenicity: Isoechoic (1 pt) Shape: Taller than wide (3 pts) Margins: Smooth (0 pts) Echogenic Foci: Macrocalcifications (1 pt) Additional Echogenic foci: None (0 pts) ACR TI-RADS total points: 7 ACR TI-RADS risk category: TR5 (>/= 7 points) ACR TI-RADS recommendation: Fine needle aspiration LEFT LOBE: 5.0 x 2.7 x 2.2 cm . No nodule equal to or larger than 1.0 cm. No TR-5 nodule. ISTHMUS: No suspicious nodules are identified. Cervical lymphadenopathy: None. Parathyroid adenoma: None. IMPRESSION: A 3.0 cm right thyroid nodule is a TR-5 lesion. Recommend FNA biopsy. ACR TI-RADS risk category: TR5 (>/= 7 points) ACR TI-RADS recommendation: Fine needle aspiration. ACR TI-RADS recommendations TR5 (>/= 7 points) - FNA if >/= 1cm, follow-up if 0.5 - 0.9 cm every yearfor 5 years TR4 (4-6 points) - FNA if >/= 1.5cm, follow-up if 1 - 1.4 cm in 1, 2, 3and 5 years TR3 (3 points)- FNA if >/= 2.5cm, follow-up if 1.5 - 2.4 cm in 1, 3 and 5years TR2 (2 points) & TR1 (0 points) - No FNA and no follow-up indicated These guidelines for management of thyroid nodules are based on the ACRThyroid Ultrasound Reporting Lexicon, January 2017: https://[email or web address]/[email or web address].[email or web address] A clinically significant result was initiated on 12/16/2024 4:58 PM,Message ID [id number]. us Singh Tilley MD IMG US THYROID Final Resu lt documented in this encounter Visit Diagnoses Diagnosis Thyroid nodule Nontoxic uninodular goiter Thyroid nodule- Primary Nontoxic uninodular goiter documented in this encounter Care Teams Ged Instructor Relationship Specialty Start Date End Date Singh Tilley MD [address] [place] [address] [email or web address] PCP - General Internal Medicine 11/27/24 documented as of this encounter Additional Source Comments The information contained in this document represents components of the legal health record. It is not the complete legal health record.[facility]
--- OUTSIDE RECORDS SUMMARY | 2025-09-08 13:47 | XMS_ITS | Clinical Summary ---
Author Organization [employer] Address [address] [facility] [address] [place] [address] Care Team Providers Care Traveling Clerk Name Role Phone Singh Tilley MD Primary Care Provider Allergies Active Allergy Reactions Criticality Noted Date Comments Sulfa Antibiotics Swelling 06/18/2023 Medications aspirin 81 MG chewable tabletIndicatio ns:Coronary artery disease involving qagan tayagungin heart without angina pectoris, unspecified vessel or lesion type Chew 1 tablet (81 mg) Once per day. 90 tablet 3 12/29/19 25 026 Active atorvastatin (Lipitor) 80 MG tabletIndicatio ns:Coronary artery disease involving qagan tayagungin heart, unspecified vessel or lesion type, unspecified whether angina present Take 1 tablet (80 mg) by mouth Once per day. 30 tablet 11 02/03/20 25 026 Active albuterol 108 (90 Base) MCG/ACT inhalerIndicati ons:Acute cough Inhale 2 puffs every 6 (six) hours if needed for wheezing or shortness of breath. 18 g 1 09/06/20 25 025 Active Spacer/Aero-Hol ding Chambers deviceIndicatio ns:Acute cough 1 Device Every 4-6 hours as needed (for cough or wheeze). 1 Device 09/06/20 25 Active benzonatate (Tessalon Perles) 100 MG capsule Take 1 capsule (100 mg) by mouth if needed in the morning, at noon, and at bedtime for cough for up to 7 days. Do not crush or chew. 20 capsule 09/06/20 25 025 Active azithromycin (Zithromax) 250 MG tabletIndicatio ns:Acute cough Take 2 tablets (500 mg) by mouth Once per day for 1 day, THEN 1 tablet (250 mg) Once per day for 4 days. 6 tablet 09/06/20 25 025 Active lisinopril 20 MG tablet TAKE 1 TABLET BY MOUTH EVERY DAY IN THE MORNING 90 tablet 3 09/07/20 25 Active lisinopril 20 MG tablet TAKE 1 TABLET BY MOUTH EVERY DAY IN THE MORNING 90 tablet 3 09/17/20 24 025 Discontinued Active Problems Problem Noted Date Diagnosed Date Abdominal discomfort 11/11/2024 Overview (11/11/2024): Colonoscopy 03/16/2021 demonstrated moderated diverticulosis and multiple polyps Previous CT A/P demonstrated cholelithiasis Assessment & Plan (11/11/2024 7:22 PM EST): 69 y/o adult with pmhx significant for cholelithiasis, diverticulosis, history of kidney stones presents with one week of increased heartburn and associated bad taste in mouth after eating, bloating, LLQ discomfort after eating, and increased stool urgency. No fevers, melena, other blood in stool, nausea, vomiting, recent abx, recent travel, medication adjustments. Pulse mildly low at 56, otherwise vitals WNL. Abdominal exam unremarkable. Possibly diverticulitis given known diverticulosis, LLQ pain, and change in stool habits. Also possibly ischemic colitis given known arterial disease and post prandial pain. Has known history of kidney stones, recently just passed, nephrolithiasis also possible. Lower suspicion for pyelonephritis, no urinary symptoms. - Will obtain CBC and CMP - Will obtain UA - Will obtain CT A/P with IV + Oral contrast - Deferred starting empiric abx, can consider Augmentin if symptoms do not resolve, allergy to sulfa abx - Discussed strict RTC and ER precautions, Patient expressed understanding and is in agreement with plan Mixed hyperlipidemia 11/11/2024 Coronary artery disease 11/11/2024 Assessment & Plan (11/11/2024 7:01 PM EST): LDCT demonstrated severe coronary artery calcifications - Referral to cardiology for further evaluation and potential nuclear stress test. - Switch to high intensity atorvastatin 40 mg. Discontinue lovastatin. Renal cyst 11/11/2024 Assessment & Plan (11/11/2024 7:08 PM EST): LDCT demonstrated Exophytic lesion arising from medial cortex of right kidney measuring 2.3cm US bladder demonstrated bilateral renal cysts 2.1 cm on right and 5.1 cm on left without significant change from prior study - Placed order to diagnostic radiology for f/u MRI to better characterize renal lesions Liver lesion 11/11/2024 Assessment & Plan (11/11/2024 7:06 PM EST): LDCT demonstrated low attenuation lesion in the right hepatic lobe measures 3cm and 5 Hounsfield units, likely a cyst or hemagioma - Will place order for f/u MRI to better characterize liver lesion Pulmonary nodules 11/11/2024 Assessment & Plan (11/11/2024 7:11 PM EST): Multiple pulmonary nodules identified on LDCT, recommended repeat CT in 6 months - Will place order for f/u CT 6 months from scan Primary hypertension 06/26/2023 RODRICK (obstructive sleep apnea) 06/26/2023 Overview (06/26/2023): On cpap Benign prostatic hyperplasia without lower urinary tract symptoms 06/26/2023 Overview (06/26/2023): On saw palmetto to control symptoms Renal calculus 06/26/2023 Overview (11/11/2024): US Bladder demonstrated mild left hydronephrosis, 0.7 cm focus in the urinary bladder, may represent a small calculus, Assessment & Plan (11/11/2024 7:03 PM EST): Patient established with Urology, recently seen, plans to transition care back to Dr. Echevarria. Patient reported passed stone 2 weeks ago, kept stone to undergo analysis. - Patient to follow up with Urology Asymptomatic gallstones 06/26/2023 Overview (06/26/2023): Seen on CT for kidney stone 02/2023 AAA (abdominal aortic aneurysm) without rupture 06/26/2023 Overview (06/26/2023): Incidental on CT 02/2023 following up with vascular Class 3 severe obesity due t o excess calories with serious comorbidity and body mass index (BMI) of 40.0 to 44.9 in adult 06/26/2023 Gastroesophageal reflux dise ase with esophagitis without hemorrhage 06/26/2023 Overview (06/26/2023): 03/25 lifestyle and H2 bid if persists start ppi and f/u if persists despite Encounters Date Type Department Care Team Description 09/07/[address] [phone] Singh Tilley MD 09/06/2025 9:20 AM EST Office Visit [address] [phone] Kath Sinclair FNP Acute cough (Primary Dx) 09/05/[address] [phone] Singh Tilley MD from Last 3 Months Social History Tobacco Use Types Packs/Day Years Used Date Smoking Tobacco: Former Cigarettes 1 15 Passive Smoke Exposure: Past Smokeless Tobacco: Never Tobacco Cessation:Counseling Given: Not Answered Alcohol Use Standard Drinks/Week Comments Not Currently [...] the past 12 months, has t he [employer], [employer], oil or water company threatened to shut [...] Orientation Straight 09/06/2025 9: 27 AM EST Last Filed Vital Signs Vital Sign Reading Time Taken Comments Blood Pressure 126/65 09/06/2025 9:31 AM EST Pulse 53 09/06/2025 9:31 AM EST Temperature 36.1 C (97 F) 02/02/2025 2:48 PM EDT Respiratory Rate - - Oxygen Saturation 98% 09/06/2025 9:31 AM EST Inhaled Oxygen Concentration - - Weight 130 kg (286 lb) 02/02/2025 2:48 PM EDT Height 180 cm (5' 10.87 ) 06/18/2023 10:00 AM ED T Body Mass Index 40.04 06/18/2023 10:00 AM EDT Plan of Treatment Health Maintenance Due Date Last Done Comments CT Colonography 1955 FIT DNA/Cologuard 1955 FIT 1955 FOBT 1955 Sigmoidoscopy 1955 Hepatitis A Vaccines (1 of 2 - Risk 2-dose series) 1974 Zoster Vaccines (1 of 2) 2005 Hepatitis B Vaccines (1 of 3 - Risk 3-dose series) 2015 RSV Patients and Patients Aged 60 years or older (1 - Risk 60-74 years 1-dose series) 2015 COVID-19 Vaccine (4 - 2024-2 6 season) 2025 09/07/2021, 03/07/2021, 02/14/2021 Postponed from 07/04/2025 (Patient Ill Today) DTaP/Tdap/Td Vaccines (1 - Tdap) 09/13/2025 08/29/2021 Postponed from 08/30 (Patient Ill Today) Influenza Vaccine (#1) 2025 Postp oned from 07/04/2025 (Patient Ill Today) Pneumococcal Vaccine: 50+ Years (2 of 2 - PCV) 09/13/2025 08/29/2021 Postponed from 08/04 (Patient Ill Today) Colonoscopy 03/16/2026 03/16/2021 Colorectal Cancer Screening 03/16/2026 Alcohol/Substance Use Screening 09/06/2026 09/06/2025 Depression Screening 09/06/2026 09/06/2025, 09/06/2025 SDOH Screening 09/06/2026 09/06/2025 Tobacco Screening 09/06/2026 09/06/2025 Lipid Panel 11/11/2029 11/11/2024, 08/02/2024 Hepatitis C Screening Completed 08/02/2024 HIB Vaccines Aged Out No longer eligi ble based on patient's age to complete this topic HPV Vaccines Aged Out No longer eligi ble based on patient's age to complete this topic IPV Vaccines Aged Out No longer eligi ble based on patient's age to complete this topic Meningococcal B Vaccine Aged Out No l onger eligible based on patient's age to complete this topic Meningococcal Vaccine Aged Out No jaelyn dilia eligible based on patient's age to complete this topic RSV under 20 months Aged Out No longe r eligible based on patient's age to complete this topic Rotavirus Vaccines Aged Out No longer eligible based on patient's age to complete this topic Procedures Procedure Name Priority Date/Time Associated Diagnosis Comments LIPID PANEL WITH REFLEX TO DIRECT LDL Routine 11/11/2024 3:07 PM EST HEPATITIS C AB W/REFL TO HCV RNA, QN, PCR Routine 08/02/2024 11:32 AM EDT Encounter for screening examination for sexually transmitted disease HM COLONOSCOPY Routine 03/16/2021 11:33 AM EDT from Last 3 Months or Most Recently Relevant to Health Maintenance Results * (ABNORMAL) Lipid Panel with Reflex to Direct LDL (11/11/2024 3:07 PM EST) Cholesterol, Total 198 <200 mg/dL [facility] HDL Cholesterol 35(L) > OR = 40 mg/dL [facility] Triglycerides 275(H) <150 mg/dL [facility] Comment: If a non-fasting specimen was collected, consider repeat triglyceride testing on a fasting specimen if clinically indicated. Jordan et al. J. of Clin. Lipidol. 2015;9:129-169. LDL Cholesterol 121(H) mg/dL [facility] Comment: Reference range: <100 Desirable range <100 mg/dL for primary prevention; <70 mg/dL for patients with CHD or diabetic patients with > or = 2 CHD risk factors. LDL-C is now calculated using the Jose Francisco-Bradly calculation, which is a validated novel method providing better accuracy than the Friedewald equation in the estimation of LDL-C. Jose Francisco SS et al. PEDRO. 2013;310(19): 3673-6740 (http://education.[employer]/faq/LCF401) Chol/HDLC Ratio 5.7(H) <5.0 (calc) [facility] Non-HDL Cholesterol 163(H) <130 mg/dL [facility] Comment: For patients with diabetes plus 1 major ASCVD risk factor, treating to a non-HDL-C goal of <100 mg/dL (LDL-C of <70 mg/dL) is considered a therapeutic option. 11/11/2024 3:07 PM EST 11/11/2024 3:07 PM EST Narrative [facility] - 11/12/2024 9:27 AM EST FASTING:NO FASTING: NO us Ori Dodson PA-C LAB BLOOD ORDERABLES Final Res ult Performing Organization Address [facility] de Phone Number [address], [place] [address] [facility] [place] [address] [place] [phone] * Hepatitis C Antibody with Reflex to HCV, RNA, Quantitative, Real-Time PCR (08/02/2024 11:32 AM EDT) Hepatitis C Antibody NON-REACT CATIE NON-REACT CATIE [facility] [place] Comment: HCV antibody was non-reactive. There is no laboratory evidence of HCV infection. In most cases, no further action is required. However, if recent HCV exposure is suspected, a test for HCV RNA (test code 80150) is suggested. For additional information please refer to http://education.[employer]/faq/RMG70j9 (This link is being provided for informational/ educational purposes only.) Blood Venous blood specimen / Unknown 08/02/2024 11:32 AM EDT 08/02/2024 11:37 AM EDT Narrative [facility] - 08/03/2024 5:01 AM EDT FASTING:NO FASTING: NO us Singh Tilley MD LAB BLOOD ORDERABLES Final R esult Performing Organization Address [facility] de Phone Number [address], [facility] [place] [address] [facility] [place] [address] [place] [phone] * Hm Colonoscopy (03/16/2021 11:33 AM EDT) us Not In System Provider HEALTH MAINTENANCE Edited Result - Final from Last 3 Months or Most Recently Relevant to Health Maintenance Insurance #[address] [place] [address] [facility] MEDICARE ADVANTAGE Care Teams Traveling Clerk Relationship Specialty Start Date End Date Singh Tilley MD [address] [place] [id number] PCP - General Internal Medicine 06/23/24
--- OUTSIDE RECORDS SUMMARY | 2025-09-08 13:47 | XMS_ITS | Encounter Summary ---
Author Organization [employer] Address [address] [facility] [address] [place] [address] Care Team Providers Care Robotic Weld Technician Name Role Phone Singh Tilley MD Primary Care Provider [phone] Encounter Details Date Type Department Care Team ([facility] Contact Info) Description 01/03/2025 Telephone [facility] [address] [place] [phone] Singh Tilley MD [address] [place] [address] Social History Tobacco Use Types Packs/Day Years [...] encounter Miscellaneous Notes * Telephone Encounter - Iram Coe - 01/06/2025 11:21 AM EST Processed and faxed new referral * Telephone Encounter - Sienna Mckoy - 01/03/2025 10:56 AM EST Images from the original note were not included. Chetan called asking for the Endocrinology referral be sent to some where closer as he has no transportation except the bus he asked for possibly to be at [employer]. Call back # [phone] Referral #: [id number] Authorization #: Coverage Payer: [employer] MEDICARE Coverage Plan: [facility] MEDICARE ADVANTAGE Referred By Provider: Singh Tilley MD [address] [place] [id number] Referred To Provider Zachary Valverde [address] [facility] [address] Referral Start Date: 12/07/2024 Referral End Date: 12/07/2025 Diagnosis and Procedure Information: Diagnoses: E04.1 (ICD-10-CM) - Thyroid nodule documented in this encounter Plan of Treatment Not on file documented as of this encounter Visit Diagnoses Not on filedocumented in this encounter Care Teams Robotic Weld Technician Relationship Specialty Start Date End Date Singh Tilley MD [address] [place] [phone] PCP - General Internal Medicine 06/23/24 documented as of this encounter
--- OUTSIDE RECORDS SUMMARY | 2025-09-08 13:47 | XMS_ITS | Encounter Summary ---
Author Organization [facility] Address [address] [place] [phone] Phone Care Team Providers Care Senior C Software Developer Name Role Phone Singh Tilley MD Primary Care Provider [phone] Singh Tilley MD Primary Care Provider [phone] Encounter Details Date Type Department Care Team (Late st Contact Info) Description 08/05/2024 Procedure Pass [facility], Ct Scan - [facility] [address] [place] [address] Social History Tobacco Use Types Packs/Day Years [...] on filedocumented in this encounter Care Teams Senior C Software Developer Relationship Specialty Start Date End Date Singh Tilley MD PCP - General Internal Medicine 08/06/24 11/26/24 Singh iTlley MD [address] [place] [address] [email or web address] PCP - General Internal Medicine 11/27/24 documented as of this encounter Additional Source Comments The information contained in this document represents components of the legal health record. It is not the complete legal health record.[facility]
== END 2025-09-08 11:29 | disposition home or self-care (01) ==
LOC: HO.HVS 11:08
PROVIDERS: PCP Internal Medicine; Visit Provider Surgery Vascular Surgery
DX: I71.43 Infrarenal abdominal aortic aneurysm, without rupture (principal)
CPT/HCPCS: 99214; G2211

== ENCOUNTER → 2025-09-08 11:07 | Outpatient (BNVA) | payer MEDICARE, SELFPAY | PROVIDERS: PCP Internal Medicine; Visit Provider Surgery Vascular Surgery | DX: I71.43 Infrarenal abdominal aortic aneurysm, without rupture (principal); I10 Essential (primary) hypertension; Z87.891 Personal history of nicotine dependence | CPT/HCPCS: 99212 ==